=== PATIENT | female | born 1965 | race American Indian/Alaskan Native ===

== ENCOUNTER 2018-03-04 13:18 | Inpatient (IN) | payer MEDICAID, OTHER, SELFPAY ==
--- NOTE | 2018-03-04 14:16 | Emergency Department Report ---
ED Altered Mental Status HPI - General Chief Complaint: Dyspnea/Respdistress Stated Complaint: AMS Time Seen by Provider: 03/04/18 13:54 Source: patient, family Mode of arrival: Ambulatory Limitations: No Limitations - History of Present Illness Initial Comments: Pt is a 52 yo cauc. female who is brought to the ER today by her daughter. Her daughter states they went to bed last night and her mother was in her usual state of health. Usual for this pt is with residual from a CVA. She speaks slowly normally and is ambulatory. When the daughter woke up this am she found her mother on the phone with her rehabilitation caseworker. The case manger told the daughter that her mother was confused and she needed to go to ER. The rehabilitation caseworker stated that the patient gets like this when she has an inc ammonia level. So the patient came to ER. The pt has been in [place] since [place] visiting. Per the pt and family the pt does not have all of her meds due to a mix up with the mail order pharmacy. The rehabilitation caseworker confirmed this. Which meds the patient is not taking is unclear; but it seems like the majority have not been taken in about 2 weeks. The patients stated she does not have her stress dose steroids nor her lactulose. Pt and daughter are poor informants. The daughter can not tell me what her mothers medical history is. On arrival pt is confused, attempting to speak but can not recall what I am asking her. She moves all extremities but l side is weaker- this may be residual from previous CVA. 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 GLIMEPRIDE HYDROCORT BID 20 IN AM AND 10 AT NIGHT; PRN STRESS DOSE BUT PT DOES NOT KNOW THE DOSE KEPPRA PMH SEIZURES- grandmal in 02/02 which was pts last hospitalization BRAIN TUMOR CVA- SPEAKS SLOW WALKS WITH A CANE GERD DM HTN HPL NEUROPATHY PVD MIGRAINES CF PVD OBESITY ADRENAL DISEASE CKD CF PCP DR LEYVA [phone] neuro MD Dr zelaya [phone] Complaint: altered mental status, confusion -: Gradual, unknown (ACUTE/CHRONIC) Severity: moderate Context: change in medication (FROM OUT OF TOWN AND DOES NOT HAAVE ALL OF HER MEDS), diabetes, seizure disorder Associated Symptoms: other (POOR INFORMANT ) - Related Data Home Medications Medication Instructions Recorded Confirmed Last Taken Metoprolol [Lopressor TAB] 50 mg PO ONCE 09/06/15 09/12/15 Unknown metFORMIN [Glucophage] 500 mg PO BID 09/06/15 09/12/15 Unknown Citalopram [celeXA] 40 mg PO QDAY 09/12/15 09/12/15 Unknown Gabapentin [Neurontin] 300 mg PO Q8HR 09/12/15 09/12/15 Unknown Pantoprazole Sodium 40 mg PO ONCE 09/12/15 09/12/15 Unknown Allergies Allergy/AdvReac Type Severity Reaction Status Date / Time No Known Allergies Allergy Verified 03/04/18 13:45 ED Review of Systems ROS: Stated complaint: DIZZY/HEADACHE/WEAK Other details as noted in HPI Comment: Unobtainable due to pts medical conditions Constitutional: denies: chills, fever Eyes: denies: eye pain ENT: denies: ear pain Respiratory: denies: cough Cardiovascular: denies: palpitations Endocrine: denies: excessive sweating Gastrointestinal: denies: nausea Genitourinary: denies: urgency Musculoskeletal: denies: back pain Skin: denies: rash Neurological: as per HPI, weakness, confusion, other (pt and daughter are poor informants; the patient has no respiratory complaints on arrival). denies: headache, numbness, paresthesias, abnormal gait, vertigo Psychiatric: denies: anxiety, depression Hematological/Lymphatic: denies: easy bleeding ED Past Medical Hx - Past Medical History Previous Medical History?: Yes Hx Hypertension: Yes Hx CVA: Yes Hx Diabetes: Yes Hx GERD: Yes Hx Liver Disease: Yes Hx Renal Disease: Yes (CKD) Hx Headaches / Migraines: Yes Hx Seizures: Yes Hx Dementia: No Additional medical history: Brain Tumor, adrenal insufficiency, fibromyalgia - Surgical History Past Surgical History?: Yes - Family History Family history: no significant - Social History Smoking Status: Never Smoker Substance Use Type: None - Medications Home Medications: Home Medications Medication Instructions Recorded Confirmed Last Taken Type Metoprolol [Lopressor TAB] 50 mg PO ONCE 09/06/15 09/12/15 Unknown History metFORMIN [Glucophage] 500 mg PO BID 09/06/15 09/12/15 Unknown History Citalopram [celeXA] 40 mg PO QDAY 09/12/15 09/12/15 Unknown History Gabapentin [Neurontin] 300 mg PO Q8HR 09/12/15 09/12/15 Unknown History Pantoprazole Sodium 40 mg PO ONCE 09/12/15 09/12/15 Unknown History ED Physical Exam - General Limitations: No Limitations General appearance: other (awake- does not appear post ictic. no hx of recent sz; her last on ein 02/02) - Head Head exam: Present: atraumatic, normocephalic - Eye Eye exam: Present: PERRL, EOMI. Absent: scleral icterus, periorbital swelling Pupils: Present: other (3 reactive bilaterally) - ENT ENT exam: Present: normal exam, mucous membranes moist, TM's normal bilaterally - Neck Neck exam: Present: normal inspection, full ROM. Absent: tenderness, meningismu s, lymphadenopathy, thyromegaly - Respiratory Respiratory exam: Present: normal lung sounds bilaterally, other (no inc wob; sat mid 90's) - Cardiovascular Cardiovascular Exam: Present: regular rate, tachycardia, normal heart sounds - GI/Abdominal GI/Abdominal exam: Present: soft, normal bowel sounds, other (BM this AM per pt was normal). Absent: distended, tenderness - Rectal Rectal exam: Present: deferred - Extremities Exam Extremities exam: Present: normal capillary refill, other (mild left arm and left leg weakness noted ? residual from old CVA.) - Back Exam Back exam: Present: normal inspection. Absent: tenderness, CVA tenderness (R), CVA tenderness (L), rash noted - Neurological Exam Neurological exam: Present: altered, CN II-XII intact (no focal neuro def; no facial palsy; tongue midline). Absent: alert, oriented X3 (knows name only on admit), normal gait (normal for pt - cane) - Skin Skin exam: Present: warm, dry ED Course Vital Signs 03/04/18 03/04/18 13:39 15:34 Temperature 97.7 F Pulse Rate 105 H Respiratory 20 Rate Blood Pressure 145/83 147/81 O2 Sat by Pulse 95 Oximetry - Reevaluation(s) Reevaluation #1: 03/04/18 14:29 provider spoke with rehabilitation caseworker and validated this AM's events. Dr Baugh aware of patients presentation pt moved to main ED 03/04/18 17:12 On re-exam the patient recognized me- which she could not have done earlier. She states year is 2018. She told me her name and that her daughter went home. Dr Stewart aware of request to consult on patient. - Lab Data Result diagrams: 03/04/18 14:54 03/04/18 13:57 Lab Results 03/04/18 03/04/18 03/04/18 Range/Units 13:50 13:57 13:57 WBC (4.5-11.0) K/mm3 RBC (3.65-5.03) M/mm3 Hgb (10.1-14.3) gm/dl Hct (30.3-42.9) % MCV (79-97) fl MCH (28-32) pg MCHC (30-34) % RDW (13.2-15.2) % Plt Count (140-440) K/mm3 Lymph % (Auto) (13.4-35.0) % [place] % (Auto) (0.0-7.3) % Eos % (Auto) (0.0-4.3) % Baso % (Auto) (0.0-1.8) % Lymph # (1.2-5.4) K/mm3 [place] # (0.0-0.8) K/mm3 Eos # (0.0-0.4) K/mm3 Baso # (0.0-0.1) K/mm3 Total Counted Seg Neutrophils % (40.0-70.0) % Seg Neuts % (Manual) Band Neutrophils % Lymphocytes % (Manual) Reactive Lymphs % (Man) Monocytes % (Manual) Eosinophils % (Manual) Basophils % (Manual) Metamyelocytes % Myelocytes % Promyelocytes % Blast Cells % Nucleated RBC % Seg Neutrophils # (1.8-7.7) K/mm3 Seg Neutrophils # Man Band Neutrophils # Lymphocytes # (Manual) Abs React Lymphs (Man) Monocytes # (Manual) Eosinophils # (Manual) Basophils # (Manual) Metamyelocytes # Myelocytes # Promyelocytes # Blast Cells # WBC Morphology Hypersegmented Neuts Hyposegmented Neuts Hypogranular Neuts Hypersegmented Polys Smudge Cells Toxic Granulation Toxic Vacuolation Dohle Bodies Pelger-Huet Anomaly Kristie Rods Platelet Estimate Clumped Platelets Plt Clumps, EDTA Large Platelets Giant Platelets Platelet Satelliting Plt Morphology Comment RBC Morphology Dimorphic RBCs Polychromasia Hypochromasia Poikilocytosis Basophilic Stippling Anisocytosis Microcytosis Macrocytosis Spherocytes Pappenheimer Bodies Sickle Cells Target Cells Tear Drop Cells Ovalocytes Stomatocytes Helmet Cells [place] Bodies Glidden Rings [place] Cells Bite Cells Crenated Cell Elliptocytes Acanthocytes (Spur) Rouleaux Hemoglobin C Crystals Schistocytes Malaria parasites Lauri Bodies Hem Pathologist Commnt PT 14.4 (12.2-14.9) Sec. INR 1.08 (0.87-1.13) VBG pH (7.320-7.420) Sodium 138 (137-145) mmol/L Potassium 3.6 (3.6-5.0) mmol/L Chloride 100.9 (98-107) mmol/L Carbon Dioxide 22 (22-30) mmol/L Anion Gap 19 mmol/L BUN 11 (7-17) mg/dL Creatinine 0.5 L (0.7-1.2) mg/dL Estimated GFR > 60 ml/min BUN/Creatinine Ratio 22 % Glucose 258 H (65-100) mg/dL POC Glucose 273 H (70-105) Ketones Quantitative (Negative) Calcium 9.0 (8.4-10.2) mg/dL Total Bilirubin < 0.20 (0.1-1.2) mg/dL AST 12 (5-40) units/L ALT 22 (7-56) units/L Alkaline Phosphatase 112 (35-129) units/L Ammonia (25-60) umol/L Troponin T < 0.010 (0.00-0.029) ng/mL Total Protein 6.8 (6.3-8.2) g/dL Albumin 3.7 L (3.9-5) g/dL Albumin/Globulin Ratio 1.2 % Urine Color (Yellow) Urine Turbidity (Clear) Urine pH (5.0-7.0) Ur Specific [place] (1.003-1.030) Urine Protein (Negative) mg/dL Urine Glucose (UA) (Negative) mg/dL Urine Ketones (Negative) mg/dL Urine Blood (Negative) Urine Nitrite (Negative) Ur Reducing Substances Urine Bilirubin (Negative) Urine Ictotest Urine Urobilinogen (<2.0) mg/dL Ur Leukocyte Esterase (Negative) Urine WBC (Auto) (0.0-6.0) /HPF Urine RBC (Auto) (0.0-6.0) /HPF U Epithel Cells (Auto) (0-13.0) /HPF Urine Bacteria (Auto) (Negative) /HPF Urine Mucus /HPF Urine HCG, Qual (Negative) Urine Opiates Screen Urine Methadone Screen Ur Barbiturates Screen Ur Phencyclidine Scrn Ur Amphetamines Screen U Benzodiazepines Scrn Urine Cocaine Screen U Marijuana (THC) Screen Drugs of Abuse Note 03/04/18 03/04/18 03/04/18 Range/Units 13:57 14:54 15:18 WBC 8.8 (4.5-11.0) K/mm3 RBC 4.74 (3.65-5.03) M/mm3 Hgb 11.7 (10.1-14.3) gm/dl Hct 35.7 (30.3-42.9) % MCV 75 L (79-97) fl MCH 25 L (28-32) pg MCHC 33 (30-34) % RDW 20.1 H (13.2-15.2) % Plt Count 231 (140-440) K/mm3 Lymph % (Auto) 33.6 (13.4-35.0) % [place] % (Auto) 6.5 (0.0-7.3) % Eos % (Auto) 1.1 (0.0-4.3) % Baso % (Auto) 0.4 (0.0-1.8) % Lymph # 2.9 (1.2-5.4) K/mm3 [place] # 0.6 (0.0-0.8) K/mm3 Eos # 0.1 (0.0-0.4) K/mm3 Baso # 0.0 (0.0-0.1) K/mm3 Total Counted Cancelled Seg Neutrophils % 58.4 (40.0-70.0) % Seg Neuts % (Manual) Cancelled Band Neutrophils % Cancelled Lymphocytes % (Manual) Cancelled Reactive Lymphs % (Man) Cancelled Monocytes % (Manual) Cancelled Eosinophils % (Manual) Cancelled Basophils % (Manual) Cancelled Metamyelocytes % Cancelled Myelocytes % Cancelled Promyelocytes % Cancelled Blast Cells % Cancelled Nucleated RBC % Cancelled Seg Neutrophils # 5.0 (1.8-7.7) K/mm3 Seg Neutrophils # Man Cancelled Band Neutrophils # Cancelled Lymphocytes # (Manual) Cancelled Abs React Lymphs (Man) Cancelled Monocytes # (Manual) Cancelled Eosinophils # (Manual) Cancelled Basophils # (Manual) Cancelled Metamyelocytes # Cancelled Myelocytes # Cancelled Promyelocytes # Cancelled Blast Cells # Cancelled WBC Morphology Cancelled Hypersegmented Neuts Cancelled Hyposegmented Neuts Cancelled Hypogranular Neuts Cancelled Hypersegmented Polys Cancelled Smudge Cells Cancelled Toxic Granulation Cancelled Toxic Vacuolation Cancelled Dohle Bodies Cancelled Pelger-Huet Anomaly Cancelled Kristie Rods Cancelled Platelet Estimate Cancelled Clumped Platelets Cancelled Plt Clumps, EDTA Cancelled Large Platelets Cancelled Giant Platelets Cancelled Platelet Satelliting Cancelled Plt Morphology Comment Cancelled RBC Morphology Cancelled Dimorphic RBCs Cancelled Polychromasia Cancelled Hypochromasia Cancelled Poikilocytosis Cancelled Basophilic Stippling Cancelled Anisocytosis Cancelled Microcytosis Cancelled Macrocytosis Cancelled Spherocytes Cancelled Pappenheimer Bodies Cancelled Sickle Cells Cancelled Target Cells Cancelled Tear Drop Cells Cancelled Ovalocytes Cancelled Stomatocytes Cancelled Helmet Cells Cancelled [place] Bodies Cancelled [place] Cancelled [place] Cells Cancelled Bite Cells Cancelled Crenated Cell Cancelled Elliptocytes Cancelled Acanthocytes (Spur) Cancelled Rouleaux Cancelled Hemoglobin C Crystals Cancelled Schistocytes Cancelled Malaria parasites Cancelled Lauri Bodies Cancelled Hem Pathologist Commnt Cancelled PT (12.2-14.9) Sec. INR (0.87-1.13) VBG pH (7.320-7.420) Sodium (137-145) mmol/L Potassium (3.6-5.0) mmol/L Chloride (98-107) mmol/L Carbon Dioxide (22-30) mmol/L Anion Gap mmol/L BUN (7-17) mg/dL Creatinine (0.7-1.2) mg/dL Estimated GFR ml/min BUN/Creatinine Ratio % Glucose (65-100) mg/dL POC Glucose (70-105) Ketones Quantitative Negative (Negative) Calcium (8.4-10.2) mg/dL Total Bilirubin (0.1-1.2) mg/dL AST (5-40) units/L ALT (7-56) units/L Alkaline Phosphatase (35-129) units/L Ammonia 61.0 H (25-60) umol/L Troponin T (0.00-0.029) ng/mL Total Protein (6.3-8.2) g/dL Albumin (3.9-5) g/dL Albumin/Globulin Ratio % Urine Color (Yellow) Urine Turbidity (Clear) Urine pH (5.0-7.0) Ur Specific [place] (1.003-1.030) Urine Protein (Negative) mg/dL Urine Glucose (UA) (Negative) mg/dL Urine Ketones (Negative) mg/dL Urine Blood (Negative) Urine Nitrite (Negative) Ur Reducing Substances Urine Bilirubin (Negative) Urine Ictotest Urine Urobilinogen (<2.0) mg/dL Ur Leukocyte Esterase (Negative) Urine WBC (Auto) (0.0-6.0) /HPF Urine RBC (Auto) (0.0-6.0) /HPF U Epithel Cells (Auto) (0-13.0) /HPF Urine Bacteria (Auto) (Negative) /HPF Urine Mucus /HPF Urine HCG, Qual (Negative) Urine Opiates Screen Urine Methadone Screen Ur Barbiturates Screen Ur Phencyclidine Scrn Ur Amphetamines Screen U Benzodiazepines Scrn Urine Cocaine Screen U Marijuana (THC) Screen Drugs of Abuse Note 03/04/18 03/04/18 03/04/18 Range/Units 15:18 15:42 15:42 WBC (4.5-11.0) K/mm3 RBC (3.65-5.03) M/mm3 Hgb (10.1-14.3) gm/dl Hct (30.3-42.9) % MCV (79-97) fl MCH (28-32) pg MCHC (30-34) % RDW (13.2-15.2) % Plt Count (140-440) K/mm3 Lymph % (Auto) (13.4-35.0) % [place] % (Auto) (0.0-7.3) % Eos % (Auto) (0.0-4.3) % Baso % (Auto) (0.0-1.8) % Lymph # (1.2-5.4) K/mm3 [place] # (0.0-0.8) K/mm3 Eos # (0.0-0.4) K/mm3 Baso # (0.0-0.1) K/mm3 Total Counted Seg Neutrophils % (40.0-70.0) % Seg Neuts % (Manual) Band Neutrophils % Lymphocytes % (Manual) Reactive Lymphs % (Man) Monocytes % (Manual) Eosinophils % (Manual) Basophils % (Manual) Metamyelocytes % Myelocytes % Promyelocytes % Blast Cells % Nucleated RBC % Seg Neutrophils # (1.8-7.7) K/mm3 Seg Neutrophils # Man Band Neutrophils # Lymphocytes # (Manual) Abs React Lymphs (Man) Monocytes # (Manual) Eosinophils # (Manual) Basophils # (Manual) Metamyelocytes # Myelocytes # Promyelocytes # Blast Cells # WBC Morphology Hypersegmented Neuts Hyposegmented Neuts Hypogranular Neuts Hypersegmented Polys Smudge Cells Toxic Granulation Toxic Vacuolation Dohle Bodies Pelger-Huet Anomaly Kristie Rods Platelet Estimate Clumped Platelets Plt Clumps, EDTA Large Platelets Giant Platelets Platelet Satelliting Plt Morphology Comment RBC Morphology Dimorphic RBCs Polychromasia Hypochromasia Poikilocytosis Basophilic Stippling Anisocytosis Microcytosis Macrocytosis Spherocytes Pappenheimer Bodies Sickle Cells Target Cells Tear Drop Cells Ovalocytes Stomatocytes Helmet Cells [place] Bodies [place]idden Rings [place] Cells Bite Cells Crenated Cell Elliptocytes Acanthocytes (Spur) Rouleaux Hemoglobin C Crystals Schistocytes Malaria parasites Lauri Bodies Hem Pathologist Commnt PT (12.2-14.9) Sec. INR (0.87-1.13) VBG pH 7.361 (7.320-7.420) Sodium (137-145) mmol/L Potassium (3.6-5.0) mmol/L Chloride (98-107) mmol/L Carbon Dioxide (22-30) mmol/L Anion Gap mmol/L BUN (7-17) mg/dL Creatinine (0.7-1.2) mg/dL Estimated GFR ml/min BUN/Creatinine Ratio % Glucose (65-100) mg/dL POC Glucose (70-105) Ketones Quantitative (Negative) Calcium (8.4-10.2) mg/dL Total Bilirubin (0.1-1.2) mg/dL AST (5-40) units/L ALT (7-56) units/L Alkaline Phosphatase (35-129) units/L Ammonia (25-60) umol/L Troponin T (0.00-0.029) ng/mL Total Protein (6.3-8.2) g/dL Albumin (3.9-5) g/dL Albumin/Globulin Ratio % Urine Color Yellow (Yellow) Urine Turbidity Clear (Clear) Urine pH 5.0 (5.0-7.0) Ur Specific [place] 1.023 (1.003-1.030) Urine Protein <15 mg/dl (Negative) mg/dL Urine Glucose (UA) >=500 (Negative) mg/dL Urine Ketones Neg (Negative) mg/dL Urine Blood Neg (Negative) Urine Nitrite Neg (Negative) Ur Reducing Substances Not Reportable Urine Bilirubin Neg (Negative) Urine Ictotest Not Reportable Urine Urobilinogen 2.0 (<2.0) mg/dL Ur Leukocyte Esterase Neg (Negative) Urine WBC (Auto) 1.0 (0.0-6.0) /HPF Urine RBC (Auto) 1.0 (0.0-6.0) /HPF U Epithel Cells (Auto) 1.0 (0-13.0) /HPF Urine Bacteria (Auto) 1+ (Negative) /HPF Urine Mucus Few /HPF Urine HCG, Qual Negative (Negative) Urine Opiates Screen Presumptive negative Urine Methadone Screen Presumptive negative Ur Barbiturates Screen Presumptive negative Ur Phencyclidine Scrn Presumptive negative Ur Amphetamines Screen Presumptive negative U Benzodiazepines Scrn Presumptive negative Urine Cocaine Screen Presumptive negative U Marijuana (THC) Screen Presumptive negative Drugs of Abuse Note Disclamer - EKG Data -: EKG Interpreted by Me Rate: tachycardia - Radiology Data Radiology results: report reviewed, image reviewed unchanged brain tumor/calcification - Medical Decision Making blood sugar normal on admit labs noted ammonia 61- lactulose ordered trop neg urine noted UDS negative chest xray without consolidation Ct head noted- no change pending: cortisol ACTH blood cultures Pt was given NS 1L for hydration decadron 4 mg IV [address] Stewart for evaluation/ dispo per Dr Stewart Labs 03/04/18 03/04/18 03/04/18 13:50 13:57 13:57 WBC RBC Hgb Hct MCV MCH MCHC RDW Plt Count Lymph % (Auto) [place] % (Auto) Eos % (Auto) Baso % (Auto) Lymph # [place] # Eos # Baso # Total Counted Seg Neutrophils % Seg Neuts % (Manual) Band Neutrophils % Lymphocytes % (Manual) Reactive Lymphs % (Man) Monocytes % (Manual) Eosinophils % (Manual) Basophils % (Manual) Metamyelocytes % Myelocytes % Promyelocytes % Blast Cells % Nucleated RBC % Seg Neutrophils # Seg Neutrophils # Man Band Neutrophils # Lymphocytes # (Manual) Abs React Lymphs (Man) Monocytes # (Manual) Eosinophils # (Manual) Basophils # (Manual) Metamyelocytes # Myelocytes # Promyelocytes # Blast Cells # WBC Morphology Hypersegmented Neuts Hyposegmented Neuts Hypogranular Neuts Hypersegmented Polys Smudge Cells Toxic Granulation Toxic Vacuolation Dohle Bodies Pelger-Huet Anomaly Kristie Rods Platelet Estimate Clumped Platelets Plt Clumps, EDTA Large Platelets Giant Platelets Platelet Satelliting Plt Morphology Comment RBC Morphology Dimorphic RBCs Polychromasia Hypochromasia Poikilocytosis Basophilic Stippling Anisocytosis Microcytosis Macrocytosis Spherocytes Pappenheimer Bodies Sickle Cells Target Cells Tear Drop Cells Ovalocytes Stomatocytes Helmet Cells [place] Bodies Glidden Rings [place] Cells Bite Cells Crenated Cell Elliptocytes Acanthocytes (Spur) Rouleaux Hemoglobin C Crystals Schistocytes Malaria parasites Lauri Bodies Hem Pathologist Commnt PT 14.4 INR 1.08 VBG pH Sodium 138 Potassium 3.6 Chloride 100.9 Carbon Dioxide 22 Anion Gap 19 BUN 11 Creatinine 0.5 L Estimated GFR > 60 BUN/Creatinine Ratio 22 Glucose 258 H POC Glucose 273 H Ketones Quantitative Calcium 9.0 Total Bilirubin < 0.20 AST 12 ALT 22 Alkaline Phosphatase 112 Ammonia Troponin T < 0.010 Total Protein 6.8 Albumin 3.7 L Albumin/Globulin Ratio 1.2 Urine Color Urine Turbidity Urine pH Ur Specific [place] Urine Protein Urine Glucose (UA) Urine Ketones Urine Blood Urine Nitrite Ur Reducing Substances Urine Bilirubin Urine Ictotest Urine Urobilinogen Ur Leukocyte Esterase Urine WBC (Auto) Urine RBC (Auto) U Epithel Cells (Auto) Urine Bacteria (Auto) Urine Mucus Urine HCG, Qual Urine Opiates Screen Urine Methadone Screen Ur Barbiturates Screen Ur Phencyclidine Scrn Ur Amphetamines Screen U Benzodiazepines Scrn Urine Cocaine Screen U Marijuana (THC) Screen Drugs of Abuse Note 03/04/18 03/04/18 03/04/18 13:57 14:54 15:18 WBC 8.8 RBC 4.74 Hgb 11.7 Hct 35.7 MCV 75 L MCH 25 L MCHC 33 RDW 20.1 H Plt Count 231 Lymph % (Auto) 33.6 [place] % (Auto) 6.5 Eos % (Auto) 1.1 Baso % (Auto) 0.4 Lymph # 2.9 [place] # 0.6 Eos # 0.1 Baso # 0.0 Total Counted Cancelled Seg Neutrophils % 58.4 Seg Neuts % (Manual) Cancelled Band Neutrophils % Cancelled Lymphocytes % (Manual) Cancelled Reactive Lymphs % (Man) Cancelled Monocytes % (Manual) Cancelled Eosinophils % (Manual) Cancelled Basophils % (Manual) Cancelled Metamyelocytes % Cancelled Myelocytes % Cancelled Promyelocytes % Cancelled Blast Cells % Cancelled Nucleated RBC % Cancelled Seg Neutrophils # 5.0 Seg Neutrophils # Man Cancelled Band Neutrophils # Cancelled Lymphocytes # (Manual) Cancelled Abs React Lymphs (Man) Cancelled Monocytes # (Manual) Cancelled Eosinophils # (Manual) Cancelled Basophils # (Manual) Cancelled Metamyelocytes # Cancelled Myelocytes # Cancelled Promyelocytes # Cancelled Blast Cells # Cancelled WBC Morphology Cancelled Hypersegmented Neuts Cancelled Hyposegmented Neuts Cancelled Hypogranular Neuts Cancelled Hypersegmented Polys Cancelled Smudge Cells Cancelled Toxic Granulation Cancelled Toxic Vacuolation Cancelled Dohle Bodies Cancelled Pelger-Huet Anomaly Cancelled Kristie Rods Cancelled Platelet Estimate Cancelled Clumped Platelets Cancelled Plt Clumps, EDTA Cancelled Large Platelets Cancelled Giant Platelets Cancelled Platelet Satelliting Cancelled Plt Morphology Comment Cancelled RBC Morphology Cancelled Dimorphic RBCs Cancelled Polychromasia Cancelled Hypochromasia Cancelled Poikilocytosis Cancelled Basophilic Stippling Cancelled Anisocytosis Cancelled Microcytosis Cancelled Macrocytosis Cancelled Spherocytes Cancelled Pappenheimer Bodies Cancelled Sickle Cells Cancelled Target Cells Cancelled Tear Drop Cells Cancelled Ovalocytes Cancelled Stomatocytes Cancelled Helmet Cells Cancelled [place] Bodies Cancelled [place] Cancelled [place] Cells Cancelled Bite Cells Cancelled Crenated Cell Cancelled Elliptocytes Cancelled Acanthocytes (Spur) Cancelled Rouleaux Cancelled Hemoglobin C Crystals Cancelled Schistocytes Cancelled Malaria parasites Cancelled Lauri Bodies Cancelled Hem Pathologist Commnt Cancelled PT INR VBG pH Sodium Potassium Chloride Carbon Dioxide Anion Gap BUN Creatinine Estimated GFR BUN/Creatinine Ratio Glucose POC Glucose Ketones Quantitative Negative Calcium Total Bilirubin AST ALT Alkaline Phosphatase Ammonia 61.0 H Troponin T Total Protein Albumin Albumin/Globulin Ratio Urine Color Urine Turbidity Urine pH Ur Specific [place] Urine Protein Urine Glucose (UA) Urine Ketones Urine Blood Urine Nitrite Ur Reducing Substances Urine Bilirubin Urine Ictotest Urine Urobilinogen Ur Leukocyte Esterase Urine WBC (Auto) Urine RBC (Auto) U Epithel Cells (Auto) Urine Bacteria (Auto) Urine Mucus Urine HCG, Qual Urine Opiates Screen Urine Methadone Screen Ur Barbiturates Screen Ur Phencyclidine Scrn Ur Amphetamines Screen U Benzodiazepines Scrn Urine Cocaine Screen U Marijuana (THC) Screen Drugs of Abuse Note 03/04/18 03/04/18 03/04/18 15:18 15:42 15:42 WBC RBC Hgb Hct MCV MCH MCHC RDW Plt Count Lymph % (Auto) [place] % (Auto) Eos % (Auto) Baso % (Auto) Lymph # [place] # Eos # Baso # Total Counted Seg Neutrophils % Seg Neuts % (Manual) Band Neutrophils % Lymphocytes % (Manual) Reactive Lymphs % (Man) Monocytes % (Manual) Eosinophils % (Manual) Basophils % (Manual) Metamyelocytes % Myelocytes % Promyelocytes % Blast Cells % Nucleated RBC % Seg Neutrophils # Seg Neutrophils # Man Band Neutrophils # Lymphocytes # (Manual) Abs React Lymphs (Man) Monocytes # (Manual) Eosinophils # (Manual) Basophils # (Manual) Metamyelocytes # Myelocytes # Promyelocytes # Blast Cells # WBC Morphology Hypersegmented Neuts Hyposegmented Neuts Hypogranular Neuts Hypersegmented Polys Smudge Cells Toxic Granulation Toxic Vacuolation Dohle Bodies Pelger-Huet Anomaly Kristie Rods Platelet Estimate Clumped Platelets Plt Clumps, EDTA Large Platelets Giant Platelets Platelet Satelliting Plt Morphology Comment RBC Morphology Dimorphic RBCs Polychromasia Hypochromasia Poikilocytosis Basophilic Stippling Anisocytosis Microcytosis Macrocytosis Spherocytes Pappenheimer Bodies Sickle Cells Target Cells Tear Drop Cells Ovalocytes Stomatocytes Helmet Cells [place] Bodies Glidden Rings [place] Cells Bite Cells Crenated Cell Elliptocytes Acanthocytes (Spur) Rouleaux Hemoglobin C Crystals Schistocytes Malaria parasites Lauri Bodies Hem Pathologist Commnt PT INR VBG pH 7.361 Sodium Potassium Chloride Carbon Dioxide Anion Gap BUN Creatinine Estimated GFR BUN/Creatinine Ratio Glucose POC Glucose Ketones Quantitative Calcium Total Bilirubin AST ALT Alkaline Phosphatase Ammonia Troponin T Total Protein Albumin Albumin/Globulin Ratio Urine Color Yellow Urine Turbidity Clear Urine pH 5.0 Ur Specific [place] 1.023 Urine Protein <15 mg/dl Urine Glucose (UA) >=500 Urine Ketones Neg Urine Blood Neg Urine Nitrite Neg Ur Reducing Substances Not Reportable Urine Bilirubin Neg Urine Ictotest Not Reportable Urine Urobilinogen 2.0 Ur Leukocyte Esterase Neg Urine WBC (Auto) 1.0 Urine RBC (Auto) 1.0 U Epithel Cells (Auto) 1.0 Urine Bacteria (Auto) 1+ Urine Mucus Few Urine HCG, Qual Negative Urine Opiates Screen Presumptive negative Urine Methadone Screen Presumptive negative Ur Barbiturates Screen Presumptive negative Ur Phencyclidine Scrn Presumptive negative Ur Amphetamines Screen Presumptive negative U Benzodiazepines Scrn Presumptive negative Urine Cocaine Screen Presumptive negative U Marijuana (THC) Screen Presumptive negative Drugs of Abuse Note Disclamer - Differential Diagnosis AMS due to CVA/encephalopathy- ammonia/urea/drugs; adrenal crisis - Core Measures Measure Exclusions: not indicated - NEXUS Criteria Midline spinal tenderness present: No Altered level of consciousness: Yes Intoxication present: No Distracting injury present: No NEXUS results: C-Spine cannot be cleared clinically by these results. Imaging is required. Critical Care Time: Yes Critical care time in (mins) excluding proc time.: 30 Critical care attestation.: If time is entered above; I have spent that time in minutes in the direct care of this critically ill patient, excluding procedure time. Critical Care Time: 30 min ED Disposition Clinical Impression: Altered mental status Disposition: [id number] OP ADMIT IP TO THIS HOSP Is pt being admited?: Yes Does the pt Need Aspirin: No Condition: Stable Time of Disposition: 17:07
[2018-03-04] MEDS ORDERED: NACL 0.9% 1000 ML 1,000 ML IV ONE (14:20)
[2018-03-04] MEDS ORDERED: DECADRON IV ONE (14:21)
[2018-03-04 14:48] LABS: INR 1.08 (0.87-1.13)
[2018-03-04 14:50] LABS: Alanine Aminotransferase 22 units/L (7-56); Albumin 3.7 g/dL (3.9-5); BUN/Creatinine Ratio 22; Blood Urea Nitrogen 11 mg/dL (7-17); Hemolysis Index 12
[2018-03-04 15:00] LABS: Hematocrit 35.7 % (30.3-42.9); Hemoglobin 11.7 gm/dl (10.1-14.3); Mean Corpuscular HGB Conc 33 % (30-34); Mean Corpuscular Volume 75 fl (79-97); Platelet Count 231 K/mm3 (140-440); Red Blood Count 4.74 M/mm3 (3.65-5.03)
[2018-03-04 15:02] LABS: Red Cell Distribution Width 20.1 % (13.2-15.2)
[2018-03-04 15:24] LABS: Basophils % (Auto) 0.4 % (0.0-1.8); Eosinophils % (Auto) 1.1 % (0.0-4.3); Lymphocytes # (Auto) 2.9 K/mm3 (1.2-5.4); Lymphocytes % (Auto) 33.6 % (13.4-35.0); Monocytes % (Auto) 6.5 % (0.0-7.3)
[2018-03-04 15:25] LABS: Eosinophils # (Auto) 0.1 K/mm3 (0.0-0.4); Monocytes # (Auto) 0.6 K/mm3 (0.0-0.8)
[2018-03-04] MEDS ORDERED: CEPHULAC PO ONE (15:46)
[2018-03-04 16:15] LABS: HCG Qualitative,Urine Negative (Negative)
[2018-03-04 16:17] LABS: Bacteria,Urine 1+ /HPF (Negative); Bilirubin,Urine NEG (Negative); Blood,Urine NEG (Negative); Color,Urine Yellow (Yellow); Mucus,Urine FEW /HPF; Protein,Urine <15 mg/dL mg/dL (Negative)
--- NOTE | 2018-03-04 16:23 | XRay Report ---
FINAL REPORT EXAM: XR CHEST ROUTINE 2V HISTORY: COUGH COMPARISON: None. TECHNIQUE: Frontal and lateral views of the chest. FINDINGS: The cardiomediastinal silhouette is normal in appearance. The lungs are clear without focal consolidation. There is no pleural effusion or pneumothorax. There is no acute soft tissue or osseous abnormality. IMPRESSION: No acute cardiopulmonary disease.
[2018-03-04 16:58] LABS: Amphetamine Screen,Urine PRESUMPTIVE NEGATIVE; Benzodiazepines Screen,Urine PRESUMPTIVE NEGATIVE; Cannabinoid Screen,Urine PRESUMPTIVE NEGATIVE; Cocaine Screen,Urine PRESUMPTIVE NEGATIVE; Methadone Screen,Urine PRESUMPTIVE NEGATIVE; Opiate Screen,Urine PRESUMPTIVE NEGATIVE
--- NOTE | 2018-03-04 16:58 | Cat Scan Report ---
FINAL REPORT EXAM: CT HEAD/BRAIN WO CON HISTORY: ams- known tumor- details unknown COMPARISON: CT of the head performed on 09/12/2015 TECHNIQUE: Multiple contiguous axial images were obtained through the head without administration of IV contrast. FINDINGS: Again seen is a calcified extra-axial mass in the right frontal region measuring approximately 2.2 x 1.9 centimeters, similar in appearance to the previous study. There is no mass effect or midline shif t. There is no acute territorial infarct. There is no parenchymal hemorrhage or extra-axial fluid col lection. The ventricles are midline and are not enlarged. The subarachnoid spaces and basilar cistern s are clear. There is no skull fracture. The paranasal sinuses and mastoid air cells are clear. The b ilateral orbits are intact. IMPRESSION: Unchanged calcified extra-axial mass in the right frontal region, which may represent a meningioma. No acute intracranial abnormality.
[2018-03-04] MEDS ORDERED: FIORICET PO ONE (18:11)
[2018-03-04] MEDS ORDERED: CORTEF PO SCH ×2 (20:00→22:00)
--- NOTE | 2018-03-04 20:59 | History and Physical Report ---
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 Patient was in her usual state of health until last night. No fever or chills. Patient is from [place] but is staying with her daughter since in [place] and not taking her medications because her mail order pharmacy did not send them to the proper address. Patient is not taking her lactulose and hydrocortisone. No fever or chills. No shortness of breath. No chest pain. - Past Medical History Previous Medical History?: Yes Hx Hypertension: Yes Hx CVA: Yes Hx Diabetes: Yes Hx GERD: Yes Hx Liver Disease: Yes Hx Renal Disease: Yes (CKD) Hx Headaches / Migraines: Yes Hx Seizures: Yes Additional medical history: Brain Tumor, adrenal insufficiency, fibromyalgia Surgical History Past Surgical History?: Yes Family History Family history: no significant Social History Smoking Status: Never Smoker Substance Use Type: None Medications Home Medications: Home Medications Medication Instructions Recorded Confirmed Last Taken Type Metoprolol [Lopressor TAB] 50 mg PO ONCE 09/06/15 09/12/15 Unknown History metFORMIN [Glucophage] 500 mg PO BID 09/06/15 09/12/15 Unknown History Citalopram [celeXA] 40 mg PO QDAY 09/12/15 09/12/15 Unknown History Gabapentin [Neurontin] 300 mg PO Q8HR 09/12/15 09/12/15 Unknown History Pantoprazole Sodium 40 mg PO ONCE 09/12/15 09/12/15 Unknown History Review of Systems ROS: Stated complaint: DIZZY/HEADACHE/WEAK Other details as noted in HPI Comment: Unobtainable due to pts medical conditions Constitutional: denies: chills, fever Eyes: denies: eye pain ENT: denies: ear pain Respiratory: denies: cough Cardiovascular: denies: palpitations Endocrine: denies: excessive sweating Gastrointestinal: denies: nausea Genitourinary: denies: urgency Musculoskeletal: denies: back pain Skin: denies: rash Neurological: as per HPI, weakness, confusion, other (pt and daughter are poor informants; the patient has no respiratory complaints on arrival). denies: headache, numbness, paresthesias, abnormal gait, vertigo Psychiatric: denies: anxiety, depression Hematological/Lymphatic: denies: easy bleeding Medications and Allergies Allergies Allergy/AdvReac Type Severity Reaction Status Date / Time No Known Allergies Allergy Verified 03/04/18 13:45 Home Medications Medication Instructions Recorded Confirmed Last Taken Type Metoprolol [Lopressor TAB] 50 mg PO ONCE 09/06/15 09/12/15 Unknown History metFORMIN [Glucophage] 500 mg PO BID 09/06/15 09/12/15 Unknown History Citalopram [celeXA] 40 mg PO QDAY 09/12/15 09/12/15 Unknown History Gabapentin [Neurontin] 300 mg PO Q8HR 09/12/15 09/12/15 Unknown History Pantoprazole Sodium 40 mg PO ONCE 09/12/15 09/12/15 Unknown History Active Meds: Active Medications Sodium Chloride (Nacl 0.9% 1000 Ml) 1,000 mls @ 125 mls/hr IV BOLUS ONE Stop: 03/04/18 22:19 Last Admin: 03/04/18 16:06 Dose: 125 mls/hr Documented by: Exam - Constitutional Vitals: Temp Pulse Resp BP Pulse Ox 97.7 F 97 H 19 150/86 99 03/04/18 19:25 03/04/18 19:25 03/04/18 19:25 03/04/18 19:25 03/04/18 19:25 General appearance: Present: no acute distress, well-nourished - EENT Eyes: Present: PERRL ENT: hearing intact, clear oral mucosa - Neck Neck: Present: supple, normal ROM - Respiratory Respiratory effort: normal Respiratory: bilateral: CTA - Cardiovascular Heart rate: 90 Rhythm: regular (6) Heart Sounds: Present: S1 & S2. Absent: rub, click - Extremities Extremities: no ischemia, pulses intact, pulses symmetrical, No edema Peripheral Pulses: within normal limits - Abdominal General gastrointestinal: Present: soft, non-tender, non-distended, normal bowel sounds Female genitourinary: Present: normal - Integumentary Integumentary: Present: clear, warm, dry - Musculoskeletal Musculoskeletal: gait normal, strength equal bilaterally - Psychiatric Psychiatric: appropriate mood/affect, intact judgment & insight - Neurologic Neurologic: CNII-XII intact, moves all extremities - Allied Health Allied health notes reviewed: nursing, case management Results - Labs CBC & Chem 7: 03/04/18 14:54 03/04/18 13:57 Labs: Laboratory Last Values WBC 8.8 K/mm3 (4.5-11.0) 03/04/18 14:54 RBC 4.74 M/mm3 (3.65-5.03) 03/04/18 14:54 Hgb 11.7 gm/dl (10.1-14.3) 03/04/18 14:54 Hct 35.7 % (30.3-42.9) 03/04/18 14:54 MCV 75 fl (79-97) L 03/04/18 14:54 MCH 25 pg (28-32) L 03/04/18 14:54 MCHC 33 % (30-34) 03/04/18 14:54 RDW 20.1 % (13.2-15.2) H 03/04/18 14:54 Plt Count 231 K/mm3 (140-440) 03/04/18 14:54 Lymph % (Auto) 33.6 % (13.4-35.0) 03/04/18 14:54 [facility] % (Auto) 6.5 % (0.0-7.3) 03/04/18 14:54 Eos % (Auto) 1.1 % (0.0-4.3) 03/04/18 14:54 Baso % (Auto) 0.4 % (0.0-1.8) 03/04/18 14:54 Lymph # 2.9 K/mm3 (1.2-5.4) 03/04/18 14:54 [facility] # 0.6 K/mm3 (0.0-0.8) 03/04/18 14:54 Eos # 0.1 K/mm3 (0.0-0.4) 03/04/18 14:54 Baso # 0.0 K/mm3 (0.0-0.1) 03/04/18 14:54 Total Counted Cancelled 03/04/18 14:54 Seg Neutrophils % 58.4 % (40.0-70.0) 03/04/18 14:54 Seg Neuts % (Manual) Cancelled 03/04/18 14:54 Band Neutrophils % Cancelled 03/04/18 14:54 Lymphocytes % (Manual) Cancelled 03/04/18 14:54 Reactive Lymphs % (Man) Cancelled 03/04/18 14:54 Monocytes % (Manual) Cancelled 03/04/18 14:54 Eosinophils % (Manual) Cancelled 03/04/18 14:54 Basophils % (Manual) Cancelled 03/04/18 14:54 Metamyelocytes % Cancelled 03/04/18 14:54 Myelocytes % Cancelled 03/04/18 14:54 Promyelocytes % Cancelled 03/04/18 14:54 Blast Cells % Cancelled 03/04/18 14:54 Nucleated RBC % Cancelled 03/04/18 14:54 Seg Neutrophils # 5.0 K/mm3 (1.8-7.7) 03/04/18 14:54 Seg Neutrophils # Man Cancelled 03/04/18 14:54 Band Neutrophils # Cancelled 03/04/18 14:54 Lymphocytes # (Manual) Cancelled 03/04/18 14:54 Abs React Lymphs (Man) Cancelled 03/04/18 14:54 Monocytes # (Manual) Cancelled 03/04/18 14:54 Eosinophils # (Manual) Cancelled 03/04/18 14:54 Basophils # (Manual) Cancelled 03/04/18 14:54 Metamyelocytes # Cancelled 03/04/18 14:54 Myelocytes # Cancelled 03/04/18 14:54 Promyelocytes # Cancelled 03/04/18 14:54 Blast Cells # Cancelled 03/04/18 14:54 WBC Morphology Cancelled 03/04/18 14:54 Hypersegmented Neuts Cancelled 03/04/18 14:54 Hyposegmented Neuts Cancelled 03/04/18 14:54 Hypogranular Neuts Cancelled 03/04/18 14:54 Hypersegmented Polys Cancelled 03/04/18 14:54 Smudge Cells Cancelled 03/04/18 14:54 Toxic Granulation Cancelled 03/04/18 14:54 Toxic Vacuolation Cancelled 03/04/18 14:54 Dohle Bodies Cancelled 03/04/18 14:54 Pelger-Huet Anomaly Cancelled 03/04/18 14:54 Kristie Rods Cancelled 03/04/18 14:54 Platelet Estimate Cancelled 03/04/18 14:54 Clumped Platelets Cancelled 03/04/18 14:54 Plt Clumps, EDTA Cancelled 03/04/18 14:54 Large Platelets Cancelled 03/04/18 14:54 Giant Platelets Cancelled 03/04/18 14:54 Platelet Satelliting Cancelled 03/04/18 14:54 Plt Morphology Comment Cancelled 03/04/18 14:54 RBC Morphology Cancelled 03/04/18 14:54 Dimorphic RBCs Cancelled 03/04/18 14:54 Polychromasia Cancelled 03/04/18 14:54 Hypochromasia Cancelled 03/04/18 14:54 Poikilocytosis Cancelled 03/04/18 14:54 Basophilic Stippling Cancelled 03/04/18 14:54 Anisocytosis Cancelled 03/04/18 14:54 Microcytosis Cancelled 03/04/18 14:54 Macrocytosis Cancelled 03/04/18 14:54 Spherocytes Cancelled 03/04/18 14:54 Pappenheimer Bodies Cancelled 03/04/18 14:54 Sickle Cells Cancelled 03/04/18 14:54 Target Cells Cancelled 03/04/18 14:54 Tear Drop Cells Cancelled 03/04/18 14:54 Ovalocytes Cancelled 03/04/18 14:54 Stomatocytes Cancelled 03/04/18 14:54 Helmet Cells Cancelled 03/04/18 14:54 [place] Bodies Cancelled 03/04/18 14:54 [place] Rings Cancelled 03/04/18 14:54 [place] Cells Cancelled 03/04/18 14:54 Bite Cells Cancelled 03/04/18 14:54 Crenated Cell Cancelled 03/04/18 14:54 Elliptocytes Cancelled 03/04/18 14:54 Acanthocytes (Spur) Cancelled 03/04/18 14:54 Rouleaux Cancelled 03/04/18 14:54 Hemoglobin C Crystals Cancelled 03/04/18 14:54 Schistocytes Cancelled 03/04/18 14:54 Malaria parasites Cancelled 03/04/18 14:54 Lauri Bodies Cancelled 03/04/18 14:54 Hem Pathologist Commnt Cancelled 03/04/18 14:54 PT 14.4 Sec. (12.2-14.9) 03/04/18 13:57 INR 1.08 (0.87-1.13) 03/04/18 13:57 VBG pH 7.361 (7.320-7.420) 03/04/18 15:18 Sodium 138 mmol/L (137-145) 03/04/18 13:57 Potassium 3.6 mmol/L (3.6-5.0) 03/04/18 13:57 Chloride 100.9 mmol/L (98-107) 03/04/18 13:57 Carbon Dioxide 22 mmol/L (22-30) 03/04/18 13:57 Anion Gap 19 mmol/L 03/04/18 13:57 BUN 11 mg/dL (7-17) 03/04/18 13:57 Creatinine 0.5 mg/dL (0.7-1.2) L 03/04/18 13:57 Estimated GFR > 60 ml/min 03/04/18 13:57 BUN/Creatinine Ratio 22 % 03/04/18 13:57 Glucose 258 mg/dL (65-100) H 03/04/18 13:57 POC Glucose 138 (70-105) H 03/04/18 16:02 Ketones Quantitative Negative (Negative) 03/04/18 15:18 Calcium 9.0 mg/dL (8.4-10.2) 03/04/18 13:57 Total Bilirubin < 0.20 mg/dL (0.1-1.2) 03/04/18 13:57 AST 12 units/L (5-40) 03/04/18 13:57 ALT 22 units/L (7-56) 03/04/18 13:57 Alkaline Phosphatase 112 units/L (35-129) 03/04/18 13:57 Ammonia 61.0 umol/L (25-60) H 03/04/18 13:57 Troponin T < 0.010 ng/mL (0.00-0.029) 03/04/18 13:57 Total Protein 6.8 g/dL (6.3-8.2) 03/04/18 13:57 Albumin 3.7 g/dL (3.9-5) L 03/04/18 13:57 Albumin/Globulin Ratio 1.2 % 03/04/18 13:57 Urine Color Yellow (Yellow) 03/04/18 15:42 Urine Turbidity Clear (Clear) 03/04/18 15:42 Urine pH 5.0 (5.0-7.0) 03/04/18 15:42 Ur Specific [place] 1.023 (1.003-1.030) 03/04/18 15:42 Urine Protein <15 mg/dl mg/dL (Negative) 03/04/18 15:42 Urine Glucose (UA) >=500 mg/dL (Negative) 03/04/18 15:42 Urine Ketones Neg mg/dL (Negative) 03/04/18 15:42 Urine Blood Neg (Negative) 03/04/18 15:42 Urine Nitrite Neg (Negative) 03/04/18 15:42 Ur Reducing Substances Not Reportable 03/04/18 15:42 Urine Bilirubin Neg (Negative) 03/04/18 15:42 Urine Ictotest Not Reportable 03/04/18 15:42 Urine Urobilinogen 2.0 mg/dL (<2.0) 03/04/18 15:42 Ur Leukocyte Esterase Neg (Negative) 03/04/18 15:42 Urine WBC (Auto) 1.0 /HPF (0.0-6.0) 03/04/18 15:42 Urine RBC (Auto) 1.0 /HPF (0.0-6.0) 03/04/18 15:42 U Epithel Cells (Auto) 1.0 /HPF (0-13.0) 03/04/18 15:42 Urine Bacteria (Auto) 1+ /HPF (Negative) 03/04/18 15:42 Urine Mucus Few /HPF 03/04/18 15:42 Urine HCG, Qual Negative (Negative) 03/04/18 15:42 Urine Opiates Screen Presumptive negative 03/04/18 15:42 Urine Methadone Screen Presumptive negative 03/04/18 15:42 Ur Barbiturates Screen Presumptive negative 03/04/18 15:42 Ur Phencyclidine Scrn Presumptive negative 03/04/18 15:42 Ur Amphetamines Screen Presumptive negative 03/04/18 15:42 U Benzodiazepines Scrn Presumptive negative 03/04/18 15:42 Urine Cocaine Screen Presumptive negative 03/04/18 15:42 U Marijuana (THC) Screen Presumptive negative 03/04/18 15:42 Drugs of Abuse Note Disclamer 03/04/18 15:42 Short CBC 03/04/18 Range/Units 14:54 WBC 8.8 (4.5-11.0) K/mm3 Hgb 11.7 (10.1-14.3) gm/dl Hct 35.7 (30.3-42.9) % Plt Count 231 (140-440) K/mm3 BMP 03/04/18 13:57 Sodium 138 Potassium 3.6 Chloride 100.9 Carbon Dioxide 22 BUN 11 Creatinine 0.5 L Glucose 258 H Calcium 9.0 Cardiac Enzymes 03/04/18 Range/Units 13:57 Troponin T < 0.010 (0.00-0.029) ng/mL Liver Function 03/04/18 Range/Units 13:57 Total Bilirubin < 0.20 (0.1-1.2) mg/dL AST 12 (5-40) units/L ALT 22 (7-56) units/L Alkaline Phosphatase 112 (35-129) units/L Albumin 3.7 L (3.9-5) g/dL Urine 03/04/18 Range/Units 15:42 Urine Color Yellow (Yellow) Urine pH 5.0 (5.0-7.0) Ur Specific [place] 1.023 (1.003-1.030) Urine Protein <15 mg/dl (Negative) mg/dL Urine Glucose (UA) >=500 (Negative) mg/dL - Imaging and Cardiology EKG: report reviewed (normal sinus rhythm with LVH present) Imaging and Cardiology: CT of the head FINDINGS: Again seen is a calcified extra-axial mass in the right frontal region measuring approximately 2.2 x 1.9 centimeters, similar in appearance to the previous study. There is no mass effect or midline shift. There is no acute territorial infarct. There is no parenchymal hemorrhage or extra-axial fluid collection. The ventricles are midline and are not enlarged. The subarachnoid spaces and basilar cisterns are clear. There is no skull fracture. The paranasal sinuses and mastoid air cells are clear. The bilateral orbits are intact. IMPRESSION: Unchanged calcified extra-axial mass in the right frontal region, which may represent a meningioma. No acute intracranial abnormality. CXR IMPRESSION: No acute cardiopulmonary disease. 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 Patient initiated on hydrocortisone 20 mg in the morning and 10 mg in the evening along with lactulose. Patient has been noncompliant with medications (2) Hyperammonemia Current Visit: Yes Status: Acute Plan to address problem: Continue lactulose 40 mg twice a day (3) Type 2 diabetes mellitus Current Visit: Yes Status: Chronic Qualifiers: Diabetes mellitus manager long term care insulin use: without manager long term care use Plan to address problem: Metformin stopped Patient initiated on sliding scale insulin and Lantus 50 units at nighttime Primary team to decide about the hypoglycemics or insulin A1c is high (4) Hypertension Current Visit: Yes Status: Chronic Qualifiers: Hypertension type: essential hypertension Qualified Code(s): I10 - Essential (primary) hypertension Plan to address problem: Continue antihypertensives (5) Seizure disorder Current Visit: Yes Status: Chronic Plan to address problem: Keppra initiated No Dilantin (6) GERD (gastroesophageal reflux disease) Current Visit: Yes Status: Chronic Qualifiers: Esophagitis presence: without esophagitis Qualified Code(s): K21.9 - Gastro-esophageal reflux disease without esophagitis Plan to address problem: Continue PPIs (7) Meningioma Current Visit: Yes Status: Chronic Plan to address problem: Stable (8) Depression Current Visit: Yes Status: Chronic Qualifiers: Depression Type: unspecified Qualified Code(s): F32.9 - Major depressive disorder, single episode, unspecified Plan to address problem: Continue antidepressants (9) DVT prophylaxis Current Visit: Yes Status: Acute Plan to address problem: On Lovenox and PPIs for GI prophylaxis
[2018-03-04] MEDS ORDERED: ZOFRAN IV PRN (21:12)
[2018-03-04] MEDS ORDERED: TYLENOL PO PRN (21:12)
[2018-03-04] MEDS ORDERED: SODIUM CHLORIDE FLUSH SYRINGE 10 ML IV PRN (21:12)
[2018-03-04] MEDS ORDERED: DILAUDID IV PRN (21:19)
[2018-03-04] MEDS ORDERED: HumaLOG SUB-Q ONE (21:30)
[2018-03-04] MEDS ORDERED: PROTONIX PO ONE ×2 (22:00→22:50)
[2018-03-04] MEDS ORDERED: CEPHULAC PR SCH (22:00)
[2018-03-04] MEDS ORDERED: NACL 0.9% 1000 ML 1,000 ML IV SCH (22:00)
[2018-03-04] MEDS: SODIUM CHLORIDE FLUSH SYRINGE 10 ML IV SCH (22:34)
[2018-03-04] MEDS ORDERED: LOPRESSOR ONE (22:50)
[2018-03-04] MEDS: LOPRESSOR PO SCH (22:50)
[2018-03-04] MEDS ORDERED: NEURONTIN ONE (22:50)
[2018-03-04] MEDS: NEURONTIN PO SCH (22:51)
[2018-03-04] MEDS: celeXA PO SCH (22:55)
[2018-03-04] MEDS ORDERED: celeXA ONE ×2 (22:56→22:57)
[2018-03-04] MEDS: LANTUS SUB-Q SCH (23:50)
[2018-03-05] MEDS ORDERED: HumaLOG SUB-Q ONE (01:00)
[2018-03-05] MEDS: AMBIEN PO PRN ×2 (01:20→23:14)
[2018-03-05] MEDS: PROTONIX PO SCH ×2 (01:20→15:21)
[2018-03-05] MEDS: FLEXERIL PO SCH ×2 (01:20→10:09)
[2018-03-05] MEDS: NEURONTIN PO SCH ×3 (05:15→21:24)
[2018-03-05 09:22] LABS: Basophils % (Auto) 0.4 % (0.0-1.8); Eosinophils # (Auto) 0.1 K/mm3 (0.0-0.4); Eosinophils % (Auto) 1.1 % (0.0-4.3); Hematocrit 33.6 % (30.3-42.9); Lymphocytes # (Auto) 3.2 K/mm3 (1.2-5.4); Lymphocytes % (Auto) 39.2 % (13.4-35.0); Mean Corpuscular HGB Conc 33 % (30-34); Mean Corpuscular Volume 76 fl (79-97); Monocytes # (Auto) 0.5 K/mm3 (0.0-0.8); Monocytes % (Auto) 6.3 % (0.0-7.3); Platelet Count 224 K/mm3 (140-440); Red Blood Count 4.42 M/mm3 (3.65-5.03); Red Cell Distribution Width 19.6 % (13.2-15.2)
[2018-03-05 09:45] LABS: Alanine Aminotransferase 20 units/L (7-56); Albumin 3.8 g/dL (3.9-5); BUN/Creatinine Ratio 25; Blood Urea Nitrogen 10 mg/dL (7-17); Calcium 8.9 mg/dL (8.4-10.2); Hemolysis Index 3
[2018-03-05] MEDS ORDERED: CEPHULAC PO SCH (10:00)
[2018-03-05] MEDS ORDERED: KEPPRA PO SCH ×2 (10:00→22:00)
[2018-03-05] MEDS: CORTEF PO SCH ×2 (10:04→10:10)
[2018-03-05] MEDS: celeXA PO SCH (10:09)
[2018-03-05] MEDS: LOPRESSOR PO SCH (10:10)
[2018-03-05] MEDS: LOVENOX SUB-Q SCH (10:11)
[2018-03-05] MEDS: CEPHULAC PO SCH ×2 (11:05→18:03)
[2018-03-05] MEDS ORDERED: PHENERGAN PO PRN (12:33)
--- NOTE | 2018-03-05 12:39 | Consultation ---
History of Present Illness Consult date: 03/05/18 Requesting physician: VAZQUEZ MURILLO Reason for Consult: altered mental status History of present illness: This is a 52 yr old female who presented to ER per her daughter for altered mental status. She apparently is visiting from [place] and left without all of her medication because of a mail order mix-up. She was able to provide history, but speaks very slowly and is a poor historian. She was diagnosed with adrenal insufficiency several yrs. ago and started on hydrocortisone, which greatly improved her fatigue. She has a diagnosis of meningioma discovered in 2006. This was followed and as it was seen to enlarge on imaging, radiation was recommended and she received treatment with cyber-knife in 2010 It has been stable since then. She has never been operated for this tumor. She is unsure as to when she was diagnosed with elevated ammonia and why. She has had a TIA with numbness of the left side, uncertain as to when that happened. She now notes numbness coming and going from time to time. She also has fibromyalgia which restricts her activity. She is unsure of when she started having s eizures, but there is an ER note from 2016 stating that she presented with seizures and was given Keppra. She cannot remember when her last seizure was. She states that she also takes Dilantin. This combination seems to be working for her. CT scan in ER reveals a calcified meningioma, rt. frontal. It is stable compared to the study of 2016 Past History Past Medical History: diabetes, GERD, hypertension, seizures, other (fibromyalgia, peripheral neuropathy, ) Past Surgical History: hysterectomy Social history: lives with family Medications and Allergies Allergies Allergy/AdvReac Type Severity Reaction Status Date / Time No Known Allergies Allergy Verified 03/04/18 13:45 Home Medications Medication Instructions Recorded Confirmed Last Taken Type Metoprolol [Lopressor TAB] 50 mg PO ONCE 09/06/15 03/04/18 Unknown History metFORMIN [Glucophage] 500 mg PO BID 09/06/15 03/04/18 Unknown History Citalopram [celeXA] 40 mg PO QDAY 09/12/15 03/04/18 Unknown History Gabapentin [Neurontin] 300 mg PO Q8HR 09/12/15 03/04/18 Unknown History Pantoprazole Sodium 40 mg PO ONCE 09/12/15 03/04/18 Unknown History Cyclobenzaprine [Flexeril] 10 mg PO QHS 03/05/18 03/05/18 Unknown History Levetiracetam 1,000 mg PO BID 03/05/18 03/05/18 Unknown History Zolpidem [Ambien] 10 mg PO QHS 03/05/18 03/05/18 Unknown History Active Meds: Active Medications Acetaminophen (Tylenol) 650 mg PO Q4H PRN PRN Reason: Pain MILD(1-3)/Fever >100.5/PINEDA Last Admin: 03/05/18 10:42 Dose: 650 mg Documented by: Citalopram Hydrobromide (Celexa) 40 mg PO QDAY [facility] Last Admin: 03/05/18 10:09 Dose: 40 mg Documented by: Cyclobenzaprine HCl (Flexeril) 10 mg PO DAILY [facility] Last Admin: 03/05/18 10:09 Dose: 10 mg Documented by: Enoxaparin Sodium (Lovenox) 40 mg SUB-Q QDAY@1000 [facility] Last Admin: 03/05/18 10:11 Dose: 40 mg Documented by: Gabapentin (Neurontin) 300 mg PO Q8HR [facility] Last Admin: 03/05/18 05:15 Dose: 300 mg Documented by: Hydrocortisone Acetate (Cortef) 20 mg PO QAM [facility] Stop: 03/17/18 23:59 Last Admin: 03/05/18 10:10 Dose: 20 mg Documented by: Hydrocortisone Acetate (Cortef) 10 mg PO QDAY@2000 [facility] Stop: 03/18/18 19:59 Hydromorphone HCl (Dilaudid) 0.5 mg IV Q3H PRN PRN Reason: Pain , Severe (7-10) Ibuprofen (Motrin) 600 mg PO Q6H PRN PRN Reason: Pain, Mild (1-3) Insulin Glargine (Lantus) 15 units SUB-Q QHS [facility] Last Admin: 03/04/18 23:50 Dose: Not Given Documented by: Lactulose (Cephulac) 20 gm PO Q6HR [facility] Last Admin: 03/05/18 11:05 Dose: 20 gm Documented by: Levetiracetam (Keppra) 750 mg PO BID [facility] Last Admin: 03/05/18 10:09 Dose: 750 mg Documented by: Metoprolol Tartrate (Lopressor) 50 mg PO QDAY [facility] Last Admin: 03/05/18 10:10 Dose: 50 mg Documented by: Ondansetron HCl (Zofran) 4 mg IV Q8H PRN PRN Reason: Nausea And Vomiting Pantoprazole Sodium (Protonix) 40 mg PO QDAY [facility] Last Admin: 03/05/18 01:20 Dose: 40 mg Documented by: Promethazine HCl (Phenergan) 25 mg PO Q6H PRN PRN Reason: Nausea And Vomiting Sodium Chloride (Sodium Chloride Flush Syringe 10 Ml) 10 ml IV BID [facility] Last Admin: 03/04/18 22:34 Dose: 10 ml Documented by: Sodium Chloride (Sodium Chloride Flush Syringe 10 Ml) 10 ml IV PRN PRN PRN Reason: LINE FLUSH Zolpidem Tartrate (Ambien) 10 mg PO QHS PRN PRN Reason: Insomnia Last Admin: 03/05/18 01:20 Dose: 10 mg Documented by: Review of Systems All systems: negative (numbness in the feet, blurry vision, nausea, joint pain .) Physical Examination - Vital Signs Vital Signs: Vital Signs Temp Pulse Resp BP Pulse Ox 97.7 F 105 H 20 145/83 95 03/04/18 13:39 03/04/18 13:39 03/04/18 13:39 03/04/18 13:39 03/04/18 13:39 - Physical Exam Narrative exam: Neurological exam - Speech fluent, very slow mentation. CN's - EOMs full, no nystagmus. face symmetric, V-1 thru V-3 intact bilaterally. Tongue midline, hearing intact. Motor - 5/5. Poor effort and give way weakness on the left in the upper extremity. Left arm drifts down then comes up. Reflexes - trace throughout. Sensory - decreased left arm and left leg. Cerebellar - FTN, Khurram, fine finger movements intact. Gait assisted with cane. Arises independently. Uses cane for balance. Results - Laboratory Findings CBC and BMP: 03/05/18 07:57 03/05/18 07:57 Abnormal Lab Findings: Abnormal Labs 03/04/18 03/04/18 03/04/18 13:50 13:57 13:57 MCV MCH RDW Lymph % (Auto) Creatinine 0.5 L Glucose 258 H POC Glucose 273 H Hemoglobin A1c Ammonia 61.0 H Albumin 3.7 L 03/04/18 03/04/18 03/04/18 14:45 14:54 16:02 MCV 75 L MCH 25 L RDW 20.1 H Lymph % (Auto) Creatinine Glucose POC Glucose 138 H Hemoglobin A1c 8.8 H Ammonia Albumin 03/04/18 03/05/18 03/05/18 21:57 07:57 07:57 MCV 76 L MCH 25 L RDW 19.6 H Lymph % (Auto) 39.2 H Creatinine 0.4 L Glucose 105 H POC Glucose 171 H Hemoglobin A1c Ammonia Albumin 3.8 L 03/05/18 07:57 MCV MCH RDW Lymph % (Auto) Creatinine Glucose POC Glucose Hemoglobin A1c Ammonia 74.0 H Albumin Assessment and Plan 52 yr old female with multiple medical problems, off some of her routine meds, and presented with altered mental status. She seems to have cleared somewhat now that she is admitted. Plan - continue all meds as ordered. Agree with MRI Spoke with a nurse from Dr. George's office, her PCP. (The name given for the neurologist is not at the location for the number given). Their med list shows Keppra at 1000 mg in a.m. and 1500 in pm. Dilantin is 200 mg BID. Will adjust these meds accordingly.
[2018-03-05] MEDS: SODIUM CHLORIDE FLUSH SYRINGE 10 ML IV SCH ×2 (15:22→23:12)
--- NOTE | 2018-03-05 15:36 | Progress Note ---
Assessment and Plan Assessment and plan: Acute encephalopathy Confused neurocheck Addisons, disease Steroid replacement Elevated ammonia level. Lactulose Diabetes mellitus type 2 Morbid obesity Seizure disorder. No witnessed seizure Full code status History Interval history: Altered mental status Confused Hospitalist Physical - Physical exam Narrative exam: GEN: Not in acute distress,morbidly obese HEENT: Normocephalic, atraumatic, Neck: supple, No JVD Lungs: Clear to auscultation, no wheeze Heart:S1 and S2 regular, no murmurs, rubs or gallop, Abd:soft, non tender, non distended, normal bowel sounds Ext: No edema, no clubbing or cyanosis Neuro: Awake, confused Psych:Normal mood - Constitutional Vitals: Temp Pulse Resp BP Pulse Ox 98.7 F 81 18 137/83 94 03/05/18 12:30 03/05/18 12:30 03/05/18 12:30 03/05/18 12:30 03/05/18 12:30 General appearance: Present: no acute distress, well-nourished Results - Labs CBC & Chem 7: 03/05/18 07:57 03/05/18 07:57 Labs: Laboratory Last Values WBC 8.2 K/mm3 (4.5-11.0) 03/05/18 07:57 RBC 4.42 M/mm3 (3.65-5.03) 03/05/18 07:57 Hgb 11.0 gm/dl (10.1-14.3) 03/05/18 07:57 Hct 33.6 % (30.3-42.9) 03/05/18 07:57 MCV 76 fl (79-97) L 03/05/18 07:57 MCH 25 pg (28-32) L 03/05/18 07:57 MCHC 33 % (30-34) 03/05/18 07:57 RDW 19.6 % (13.2-15.2) H 03/05/18 07:57 Plt Count 224 K/mm3 (140-440) 03/05/18 07:57 Lymph % (Auto) 39.2 % (13.4-35.0) H 03/05/18 07:57 [place] % (Auto) 6.3 % (0.0-7.3) 03/05/18 07:57 Eos % (Auto) 1.1 % (0.0-4.3) 03/05/18 07:57 Baso % (Auto) 0.4 % (0.0-1.8) 03/05/18 07:57 Lymph # 3.2 K/mm3 (1.2-5.4) 03/05/18 07:57 [place] # 0.5 K/mm3 (0.0-0.8) 03/05/18 07:57 Eos # 0.1 K/mm3 (0.0-0.4) 03/05/18 07:57 Baso # 0.0 K/mm3 (0.0-0.1) 03/05/18 07:57 Total Counted Cancelled 03/04/18 14:54 Seg Neutrophils % 53.0 % (40.0-70.0) 03/05/18 07:57 Seg Neuts % (Manual) Cancelled 03/04/18 14:54 Band Neutrophils % Cancelled 03/04/18 14:54 Lymphocytes % (Manual) Cancelled 03/04/18 14:54 Reactive Lymphs % (Man) Cancelled 03/04/18 14:54 Monocytes % (Manual) Cancelled 03/04/18 14:54 Eosinophils % (Manual) Cancelled 03/04/18 14:54 Basophils % (Manual) Cancelled 03/04/18 14:54 Metamyelocytes % Cancelled 03/04/18 14:54 Myelocytes % Cancelled 03/04/18 14:54 Promyelocytes % Cancelled 03/04/18 14:54 Blast Cells % Cancelled 03/04/18 14:54 Nucleated RBC % Cancelled 03/04/18 14:54 Seg Neutrophils # 4.4 K/mm3 (1.8-7.7) 03/05/18 07:57 Seg Neutrophils # Man Cancelled 03/04/18 14:54 Band Neutrophils # Cancelled 03/04/18 14:54 Lymphocytes # (Manual) Cancelled 03/04/18 14:54 Abs React Lymphs (Man) Cancelled 03/04/18 14:54 Monocytes # (Manual) Cancelled 03/04/18 14:54 Eosinophils # (Manual) Cancelled 03/04/18 14:54 Basophils # (Manual) Cancelled 03/04/18 14:54 Metamyelocytes # Cancelled 03/04/18 14:54 Myelocytes # Cancelled 03/04/18 14:54 Promyelocytes # Cancelled 03/04/18 14:54 Blast Cells # Cancelled 03/04/18 14:54 WBC Morphology Cancelled 03/04/18 14:54 Hypersegmented Neuts Cancelled 03/04/18 14:54 Hyposegmented Neuts Cancelled 03/04/18 14:54 Hypogranular Neuts Cancelled 03/04/18 14:54 Hypersegmented Polys Cancelled 03/04/18 14:54 Smudge Cells Cancelled 03/04/18 14:54 Toxic Granulation Cancelled 03/04/18 14:54 Toxic Vacuolation Cancelled 03/04/18 14:54 Dohle Bodies Cancelled 03/04/18 14:54 Pelger-Huet Anomaly Cancelled 03/04/18 14:54 Kristie Rods Cancelled 03/04/18 14:54 Platelet Estimate Cancelled 03/04/18 14:54 Clumped Platelets Cancelled 03/04/18 14:54 Plt Clumps, EDTA Cancelled 03/04/18 14:54 Large Platelets Cancelled 03/04/18 14:54 Giant Platelets Cancelled 03/04/18 14:54 Platelet Satelliting Cancelled 03/04/18 14:54 Plt Morphology Comment Cancelled 03/04/18 14:54 RBC Morphology Cancelled 03/04/18 14:54 Dimorphic RBCs Cancelled 03/04/18 14:54 Polychromasia Cancelled 03/04/18 14:54 Hypochromasia Cancelled 03/04/18 14:54 Poikilocytosis Cancelled 03/04/18 14:54 Basophilic Stippling Cancelled 03/04/18 14:54 Anisocytosis Cancelled 03/04/18 14:54 Microcytosis Cancelled 03/04/18 14:54 Macrocytosis Cancelled 03/04/18 14:54 Spherocytes Cancelled 03/04/18 14:54 Pappenheimer Bodies Cancelled 03/04/18 14:54 Sickle Cells Cancelled 03/04/18 14:54 Target Cells Cancelled 03/04/18 14:54 Tear Drop Cells Cancelled 03/04/18 14:54 Ovalocytes Cancelled 03/04/18 14:54 Stomatocytes Cancelled 03/04/18 14:54 Helmet Cells Cancelled 03/04/18 14:54 Hines-Ossun Bodies Cancelled 03/04/18 14:54 [place]ar Rings Cancelled 03/04/18 14:54 [place] Cells Cancelled 03/04/18 14:54 Bite Cells Cancelled 03/04/18 14:54 Crenated Cell Cancelled 03/04/18 14:54 Elliptocytes Cancelled 03/04/18 14:54 Acanthocytes (Spur) Cancelled 03/04/18 14:54 Rouleaux Cancelled 03/04/18 14:54 Hemoglobin C Crystals Cancelled 03/04/18 14:54 Schistocytes Cancelled 03/04/18 14:54 Malaria parasites Cancelled 03/04/18 14:54 Lauri Bodies Cancelled 03/04/18 14:54 Hem Pathologist Commnt Cancelled 03/04/18 14:54 PT 14.4 Sec. (12.2-14.9) 03/04/18 13:57 INR 1.08 (0.87-1.13) 03/04/18 13:57 VBG pH 7.361 (7.320-7.420) 03/04/18 15:18 Sodium 142 mmol/L (137-145) 03/05/18 07:57 Potassium 3.6 mmol/L (3.6-5.0) 03/05/18 07:57 Chloride 103.4 mmol/L (98-107) 03/05/18 07:57 Carbon Dioxide 25 mmol/L (22-30) 03/05/18 07:57 Anion Gap 17 mmol/L 03/05/18 07:57 BUN 10 mg/dL (7-17) 03/05/18 07:57 Creatinine 0.4 mg/dL (0.7-1.2) L 03/05/18 07:57 Estimated GFR > 60 ml/min 03/05/18 07:57 BUN/Creatinine Ratio 25 % 03/05/18 07:57 Glucose 105 mg/dL (65-100) H 03/05/18 07:57 POC Glucose 164 (70-105) H 03/05/18 12:34 Hemoglobin A1c 8.8 % (4-6) H 03/04/18 14:45 Ketones Quantitative Negative (Negative) 03/04/18 15:18 Calcium 8.9 mg/dL (8.4-10.2) 03/05/18 07:57 Total Bilirubin < 0.20 mg/dL (0.1-1.2) 03/05/18 07:57 AST 12 units/L (5-40) 03/05/18 07:57 ALT 20 units/L (7-56) 03/05/18 07:57 Alkaline Phosphatase 109 units/L (35-129) 03/05/18 07:57 Ammonia 74.0 umol/L (25-60) H 03/05/18 07:57 Troponin T < 0.010 ng/mL (0.00-0.029) 03/04/18 13:57 Total Protein 6.7 g/dL (6.3-8.2) 03/05/18 07:57 Albumin 3.8 g/dL (3.9-5) L 03/05/18 07:57 Albumin/Globulin Ratio 1.3 % 03/05/18 07:57 Urine Color Yellow (Yellow) 03/04/18 15:42 Urine Turbidity Clear (Clear) 03/04/18 15:42 Urine pH 5.0 (5.0-7.0) 03/04/18 15:42 Ur Specific [place] 1.023 (1.003-1.030) 03/04/18 15:42 Urine Protein <15 mg/dl mg/dL (Negative) 03/04/18 15:42 Urine Glucose (UA) >=500 mg/dL (Negative) 03/04/18 15:42 Urine Ketones Neg mg/dL (Negative) 03/04/18 15:42 Urine Blood Neg (Negative) 03/04/18 15:42 Urine Nitrite Neg (Negative) 03/04/18 15:42 Ur Reducing Substances Not Reportable 03/04/18 15:42 Urine Bilirubin Neg (Negative) 03/04/18 15:42 Urine Ictotest Not Reportable 03/04/18 15:42 Urine Urobilinogen 2.0 mg/dL (<2.0) 03/04/18 15:42 Ur Leukocyte Esterase Neg (Negative) 03/04/18 15:42 Urine WBC (Auto) 1.0 /HPF (0.0-6.0) 03/04/18 15:42 Urine RBC (Auto) 1.0 /HPF (0.0-6.0) 03/04/18 15:42 U Epithel Cells (Auto) 1.0 /HPF (0-13.0) 03/04/18 15:42 Urine Bacteria (Auto) 1+ /HPF (Negative) 03/04/18 15:42 Urine Mucus Few /HPF 03/04/18 15:42 Urine HCG, Qual Negative (Negative) 03/04/18 15:42 Urine Opiates Screen Presumptive negative 03/04/18 15:42 Urine Methadone Screen Presumptive negative 03/04/18 15:42 Ur Barbiturates Screen Presumptive negative 03/04/18 15:42 Ur Phencyclidine Scrn Presumptive negative 03/04/18 15:42 Ur Amphetamines Screen Presumptive negative 03/04/18 15:42 U Benzodiazepines Scrn Presumptive negative 03/04/18 15:42 Urine Cocaine Screen Presumptive negative 03/04/18 15:42 U Marijuana (THC) Screen Presumptive negative 03/04/18 15:42 Drugs of Abuse Note Disclamer 03/04/18 15:42
[2018-03-05] MEDS ORDERED: D50W (25GM) Syringe IV PRN (17:25)
--- NOTE | 2018-03-05 17:43 | Magnetic Resonance Report ---
FINAL REPORT EXAM: MR BRAIN WO/W CON HISTORY: Altered mental status, mass on CT Head, inpatient TECHNIQUE: Multiplanar multisequence brain MR imaging before and after IV contrast. PRIORS: Head CT 03/04/2018 and 09/12/2015 FINDINGS: Diffusely enhancing smoothly marginated extra-axial lesion is again present adjacent to the base of t he posterior right frontal lobe. Maximum dimension again measures 22 mm. The most likely consideratio n remains right sphenoid wing meningioma, relatively unchanged from 2016. No new mass effect on adjac ent brain. No definite adjacent brain edema. It is low signal on T1, T2, and FLAIR sequences, likely corresponding to dense calcification on CT. The included air filled sinuses contain no acute fluid level. The brain is without intra-axial mass, mass effect, hemorrhage, or acute infarct. There are no areas of brain restricted diffusion to suggest an acute ischemic infarct. There is no midline shift or brai n edema. The ventricles and sulci are age-appropriate. No abnormal intra-axial IV contrast enhancemen t is visualized. IMPRESSION: No acute CVA or intra-axial brain mass Stable extra-axial nodule most compatible with right sphenoid wing meningioma, relatively unchanged f rom 2016
[2018-03-05] MEDS ORDERED: CORTEF PO SCH (20:00)
[2018-03-05] MEDS: DILANTIN PO SCH (21:23)
[2018-03-05] MEDS ORDERED: HumaLOG SUB-Q SCH (22:00)
[2018-03-05] MEDS: LANTUS SUB-Q SCH (23:11)
[2018-03-06] MEDS: NEURONTIN PO SCH ×2 (05:41→13:08)
[2018-03-06] MEDS: IBUPROFEN PO PRN ×2 (05:44→13:08)
[2018-03-06] MEDS: CEPHULAC PO SCH ×3 (05:45→12:35)
[2018-03-06] MEDS: HumaLOG SUB-Q SCH ×3 (07:55→17:12)
[2018-03-06 09:24] VITALS: BP 136/76
[2018-03-06] MEDS: PROTONIX PO SCH (09:42)
[2018-03-06] MEDS: LOVENOX SUB-Q SCH (09:42)
[2018-03-06] MEDS: CORTEF PO SCH (09:42)
[2018-03-06] MEDS: LOPRESSOR PO SCH (09:43)
[2018-03-06] MEDS: FLEXERIL PO SCH (09:43)
[2018-03-06] MEDS: celeXA PO SCH (09:43)
[2018-03-06] MEDS: DILANTIN PO SCH (09:48)
[2018-03-06] MEDS: SODIUM CHLORIDE FLUSH SYRINGE 10 ML IV SCH (09:49)
[2018-03-06] MEDS ORDERED: KEPPRA PO SCH (10:00)
--- NOTE | 2018-03-06 10:24 | Discharge Summary ---
Providers - Providers Date of Admission: 03/04/18 21:12 Date of discharge: 03/06/18 Attending physician: VAZQUEZ MURILLO 03/04/18 Consult to Case Management [CONS] Routine Services Needed at Discharge: Home Health Services Photocopying Equipment Mechanic Notified:: bilingual case manager 03/05/18 11:08 Consult to Physician [CONS] Routine Comment: Consulting Provider: ANGELICA SPARKS Physician Instructions: Reason For Exam: Altered mental status, confused Primary care physician: KONSTANTIN REYEZ Hospitalization Condition: Good Hospital course: Patient is 52 yo with seizure disorder, diabetes, hypertension, Addisons disease. She presented with altered mental status. She was admitted , evaluated by Neurology. Her home meds were restarted. Patient has been off her medications.She improved in few days, went back to baseline and was discharged home. Total time spent 31 mins. Disposition: TO HOME OR SELFCARE - Discharge Diagnoses (1) Acute encephalopathy Status: Acute (2) Altered mental status Status: Acute (3) Hyperammonemia Status: Acute (4) Depression Status: Chronic Qualifiers: Depression Type: unspecified Qualified Code(s): F32.9 - Major depressive disorder, single episode, unspecified (5) GERD (gastroesophageal reflux disease) Status: Chronic Qualifiers: Esophagitis presence: without esophagitis Qualified Code(s): K21.9 - Gastro-esophageal reflux disease without esophagitis (6) Gastroesophageal reflux disease Status: Chronic (7) Hypertension Status: Chronic Qualifiers: Hypertension type: essential hypertension Qualified Code(s): I10 - Essential (primary) hypertension (8) Seizure disorder Status: Chronic (9) Type 2 diabetes mellitus Status: Chronic Qualifiers: Diabetes mellitus keno terminal operator insulin use: without half-way use Diabetes mellitus complication status: without complication Qualified Code(s): E11.9 - Type 2 diabetes mellitus without complications Core Measure Documentation - Palliative Care Palliative Care/ Comfort Measures: Not Applicable - Core Measures Any of the following diagnoses?: none Exam - Constitutional Vitals: Temp Pulse Resp BP Pulse Ox 97.9 F 93 H 16 136/76 93 03/06/18 08:39 03/06/18 09:43 03/06/18 08:39 03/06/18 09:43 03/06/18 08:39 Plan Activity: advance as tolerated Diet: low fat, low cholesterol, low salt Additional Instructions: 1.Follow up with PCP in 1 week. Prescriptions: Lactulose [Cephulac] 20 gm PO BID 14 Days oral.liqd
== END 2018-03-06 17:13 | disposition home or self-care (01) | DRG 71 ==
LOC: ED 13:18 → 4A 21:12
PROVIDERS: ADMIT Internal Medicine; ATTEND Internal Medicine
DX: G93.40 Encephalopathy, unspecified (principal); E72.20 Disorder of urea cycle metabolism, unspecified; E11.51 Type 2 diabetes mellitus with diabetic peripheral angiopathy without gangrene; K21.9 Gastro-esophageal reflux disease without esophagitis; E11.42 Type 2 diabetes mellitus with diabetic polyneuropathy; M79.7 Fibromyalgia; G40.909 Epilepsy, unspecified, not intractable, without status epilepticus; E11.22 Type 2 diabetes mellitus with diabetic chronic kidney disease; I12.9 Hypertensive chronic kidney disease with stage 1 through stage 4 chronic kidney disease, or unspecified chronic kidney disease; G43.909 Migraine, unspecified, not intractable, without status migrainosus; D32.9 Benign neoplasm of meninges, unspecified; F32.9 Major depressive disorder, single episode, unspecified; Z90.710 Acquired absence of both cervix and uterus; Z79.899 Other long term (current) drug therapy; Z86.73 Personal history of transient ischemic attack (TIA), and cerebral infarction without residual deficits
CPT/HCPCS: 36415; 70450; 70553; 71046; 80053; 80185; 80307; 81001; 81025; 82010; 82024; 82140; 82533; 82805; 82962; 83036; 84484; 85025; 85610; 87040; 93005; 93010; G0378; A9577; J1100; J1650; J1815; J7030

== ENCOUNTER 2018-07-10 00:32 | Emergency (ER) | payer MEDICAID ==
[2018-07-10] MEDS ORDERED: KEPPRA 1,000 MG/NS 0.75% 100ML 1,000 MG/100 ML BAG IV ONE (01:28)
[2018-07-10 01:55] LABS: Basophils # (Auto) 0.1 K/mm3 (0.0-0.1); Basophils % (Auto) 1.2 % (0.0-1.8); Eosinophils % (Auto) 0.4 % (0.0-4.3); Hematocrit 36.5 % (30.3-42.9); Hemoglobin 12.1 gm/dl (10.1-14.3); Lymphocytes # (Auto) 3.1 K/mm3 (1.2-5.4); Lymphocytes % (Auto) 27.1 % (13.4-35.0); Mean Corpuscular HGB Conc 33 % (30-34); Mean Corpuscular Volume 76 fl (79-97); Monocytes # (Auto) 0.8 K/mm3 (0.0-0.8); Monocytes % (Auto) 7.4 % (0.0-7.3); Platelet Count 217 K/mm3 (140-440); Red Blood Count 4.77 M/mm3 (3.65-5.03)
[2018-07-10 01:56] LABS: Red Cell Distribution Width 20.7 % (13.2-15.2)
--- NOTE | 2018-07-10 02:03 | XRay Report ---
PROCEDURE: XR CHEST 1V AP TECHNIQUE: Chest radiograph single view. HISTORY: chest pain COMPARISONS: March 04, 2018 . FINDINGS: Heart: Normal. Mediastinum/Vessels: Normal. Lungs/Pleural space: Normal. Bony thorax: No acute osseous abnormality. Life support devices: None. IMPRESSION: No acute cardiopulmonary abnormality. This document is electronically signed by Ayde Baugh DO., Jul 10 2018 02:01:30 AM ET
[2018-07-10 02:18] LABS: INR 1.01 (0.87-1.13); Partial Thromboplastin Time 27.2 Sec. (24.2-36.6)
[2018-07-10 02:31] LABS: Alanine Aminotransferase 41 units/L (7-56); Albumin 3.6 g/dL (3.9-5); BUN/Creatinine Ratio 16; Blood Urea Nitrogen 11 mg/dL (7-17); Calcium 9.7 mg/dL (8.4-10.2); Hemolysis Index 60
[2018-07-10] MEDS ORDERED: PEPCID IV ONE (02:41)
[2018-07-10] MEDS ORDERED: TORADOL IV ONE (02:41)
--- NOTE | 2018-07-10 03:13 | Emergency Department Report ---
ED Seizure HPI - General Chief Complaint: Seizure Stated Complaint: CP/HYERGLYCEMIA Time Seen by Provider: 07/10/18 01:16 Source: EMS Mode of arrival: Stretcher Limitations: Altered Mental Status - History of Present Illness Initial Comments: Patient is a 52-year-old female past medical history hypertension adrenal insufficiency meningioma that was diagnosed in 2016 was treated with CyberKnife in 2010 increased ammonia level with no history of liver disease who is presenting status post seizure. Patient has a known seizure disorder. Last admission here in our hospital was in February 2018 with patient was here for encephalopathy likely secondary to hyperammonemia. No seizure activities were seen at that time. Patient takes Keppra as well as Dilantin. Patient was at a [employer] and according to paramedics they were called because of the patient having chest pain. Patient then was noted by paramedics to have had a seizure. Patient is postictal at this time and is able to follow commands but is currently nonverbal. Patient is poor historian secondary to likely being in a postictal phase. - Related Data Home Medications Medication Instructions Recorded Confirmed Last Taken metFORMIN [Glucophage] 500 mg PO BID 09/06/15 03/04/18 Unknown Citalopram [Celexa] 40 mg PO QDAY 09/12/15 03/04/18 Unknown Gabapentin [Neurontin] 300 mg PO Q8HR 09/12/15 03/04/18 Unknown Cyclobenzaprine [Flexeril 10 MG 10 mg PO QHS 03/05/18 03/05/18 Unknown TAB] Levetiracetam 1,000 mg PO BID 03/05/18 03/05/18 Unknown Zolpidem [Ambien] 10 mg PO QHS 03/05/18 03/05/18 Unknown Docusate Sodium [Dok] 100 mg PO BID 03/06/18 03/06/18 Unknown Duloxetine HCl [DULoxetine] 60 mg PO DAILY 03/06/18 03/06/18 Unknown Ergocalciferol [Vitamin D2] 1 cap PO QWEEK 03/06/18 03/06/18 Unknown Etodolac 300 mg PO BID 03/06/18 03/06/18 Unknown Fenofibrate 160 mg PO DAILY 03/06/18 03/06/18 Unknown Glimepiride [Amaryl] 1 mg PO DAILY 03/06/18 03/06/18 Unknown Hydrocortisone [Cortef TAB] 10 mg PO DAILY 03/06/18 03/06/18 Unknown Losartan Potassium [Cozaar] 50 mg PO DAILY 03/06/18 03/06/18 Unknown Metoprolol Succinate [Toprol Xl] 50 mg PO DAILY MDD 1 03/06/18 03/06/18 Unknown Pantoprazole Sodium 40 mg PO DAILY 03/06/18 03/06/18 Unknown Thiamine HCl [Vitamin B-1] 100 mg PO DAILY 03/06/18 03/06/18 Unknown Zolpidem Tartrate [Ambien] 10 mg PO QHS 03/06/18 03/06/18 Unknown Previous Rx's Medication Instructions Recorded Last Taken Type Lactulose [Cephulac] 20 gm PO BID 14 Days oral.liqd 03/06/18 Unknown Rx Phenytoin [Dilantin] 100 mg PO BID #60 capsule.er 07/10/18 Unknown Rx levETIRAcetam [Keppra TAB] 1,000 mg PO BID #60 tab 07/10/18 Unknown Rx Allergies Allergy/AdvReac Type Severity Reaction Status Date / Time No Known Allergies Allergy Verified 03/04/18 13:45 ED Review of Systems ROS: Stated complaint: CP/HYERGLYCEMIA Other details as noted in HPI Comment: Unobtainable due to pts medical conditions ED Past Medical Hx - Past Medical History Previous Medical History?: Yes Hx Hypertension: Yes Hx CVA: Yes Hx Congestive Heart Failure: No Hx Diabetes: Yes Hx GERD: Yes Hx Liver Disease: Yes Hx Renal Disease: Yes (CKD) Hx Headaches / Migraines: Yes Hx Seizures: Yes Hx Asthma: No Hx COPD: No Hx Dementia: No Additional medical history: Brain Tumor, adrenal insufficiency, fibromyalgia - Social History Smoking Status: Unknown if ever smoked Substance Use Type: None - Medications Home Medications: Home Medications Medication Instructions Recorded Confirmed Last Taken Type metFORMIN [Glucophage] 500 mg PO BID 09/06/15 03/04/18 Unknown History Citalopram [Celexa] 40 mg PO QDAY 09/12/15 03/04/18 Unknown History Gabapentin [Neurontin] 300 mg PO Q8HR 09/12/15 03/04/18 Unknown History Cyclobenzaprine [Flexeril 10 MG 10 mg PO QHS 03/05/18 03/05/18 Unknown History TAB] Levetiracetam 1,000 mg PO BID 03/05/18 03/05/18 Unknown History Zolpidem [Ambien] 10 mg PO QHS 03/05/18 03/05/18 Unknown History Docusate Sodium [Dok] 100 mg PO BID 03/06/18 03/06/18 Unknown History Duloxetine HCl [DULoxetine] 60 mg PO DAILY 03/06/18 03/06/18 Unknown History Ergocalciferol [Vitamin D2] 1 cap PO QWEEK 03/06/18 03/06/18 Unknown History Etodolac 300 mg PO BID 03/06/18 03/06/18 Unknown History Fenofibrate 160 mg PO DAILY 03/06/18 03/06/18 Unknown History Glimepiride [Amaryl] 1 mg PO DAILY 03/06/18 03/06/18 Unknown History Hydrocortisone [Cortef TAB] 10 mg PO DAILY 03/06/18 03/06/18 Unknown History Lactulose [Cephulac] 20 gm PO BID 14 Days oral.liqd 03/06/18 Unknown Rx Losartan Potassium [Cozaar] 50 mg PO DAILY 03/06/18 03/06/18 Unknown History Metoprolol Succinate [Toprol Xl] 50 mg PO DAILY MDD 1 03/06/18 03/06/18 Unknown History Pantoprazole Sodium 40 mg PO DAILY 03/06/18 03/06/18 Unknown History Thiamine HCl [Vitamin B-1] 100 mg PO DAILY 03/06/18 03/06/18 Unknown History Zolpidem Tartrate [Ambien] 10 mg PO QHS 03/06/18 03/06/18 Unknown History Phenytoin [Dilantin] 100 mg PO BID #60 capsule.er 07/10/18 Unknown Rx levETIRAcetam [Keppra TAB] 1,000 mg PO BID #60 tab 07/10/18 Unknown Rx ED Physical Exam - General Limitations: Altered Mental Status General appearance: alert, in no apparent distress - Head Head exam: Present: atraumatic, normocephalic - Eye Eye exam: Present: normal appearance, PERRL, EOMI - ENT ENT exam: Present: normal orophraynx, mucous membranes moist - Neck Neck exam: Present: normal inspection - Respiratory Respiratory exam: Present: normal lung sounds bilaterally. Absent: respiratory distress, wheezes, rales, rhonchi - Cardiovascular Cardiovascular Exam: Present: regular rate, normal rhythm, normal heart sounds. Absent: systolic murmur, diastolic murmur, rubs, gallop - GI/Abdominal GI/Abdominal exam: Present: soft, normal bowel sounds. Absent: distended, tenderness, guarding, rebound - Extremities Exam Extremities exam: Present: normal inspection - Back Exam Back exam: Present: normal inspection - Neurological Exam Neurological exam: Present: alert, altered, CN II-XII intact, other (patient moving all extremities and is able to follow commands). Absent: motor sensory deficit - Psychiatric Psychiatric exam: Present: normal affect, normal mood - Skin Skin exam: Present: warm, dry, intact, normal color. Absent: rash ED Course Vital Signs 07/10/18 07/10/18 07/10/18 00:39 00:48 01:00 Temperature 98.9 F Pulse Rate 97 H 94 H Respiratory 18 11 L Rate Blood Pressure 155/97 151/89 O2 Sat by Pulse 95 97 95 Oximetry 07/10/18 01:06 Temperature Pulse Rate Respiratory 12 Rate Blood Pressure O2 Sat by Pulse 97 Oximetry - Reevaluation(s) Reevaluation #1: 07/10/18 03:09 Patient currently is speaking again in mostly full sentences however is very slow. Patient states that she wants to have her ammonia level checked which I did explain to her that this is something that we were going to be evaluated. Patient mostly is answering yes or no questions when asked. Patient states that she remembers having chest pain without shortness of breath while at [facility]. Patient 5 months ago had a very similar episode and was admitted for several days. Reevaluation #2: 07/10/18 03:14 Patient loaded with a gram of Keppra empirically. Patient Dilantin level was low at 1.7. Patient was loaded with a gram of Dilantin. ED Medical Decision Making - Lab Data Result diagrams: 07/10/18 01:36 07/10/18 01:36 Lab Results 07/10/18 07/10/18 07/10/18 Range/Units 01:36 01:36 01:36 WBC 11.3 H (4.5-11.0) K/mm3 RBC 4.77 (3.65-5.03) M/mm3 Hgb 12.1 (10.1-14.3) gm/dl Hct 36.5 (30.3-42.9) % MCV 76 L (79-97) fl MCH 25 L (28-32) pg MCHC 33 (30-34) % RDW 20.7 H (13.2-15.2) % Plt Count 217 (140-440) K/mm3 Lymph % (Auto) 27.1 (13.4-35.0) % [place] % (Auto) 7.4 H (0.0-7.3) % Eos % (Auto) 0.4 (0.0-4.3) % Baso % (Auto) 1.2 (0.0-1.8) % Lymph # 3.1 (1.2-5.4) K/mm3 [place] # 0.8 (0.0-0.8) K/mm3 Eos # 0.0 (0.0-0.4) K/mm3 Baso # 0.1 (0.0-0.1) K/mm3 Seg Neutrophils % 63.9 (40.0-70.0) % Seg Neutrophils # 7.2 (1.8-7.7) K/mm3 PT 13.9 (12.2-14.9) Sec. INR 1.01 (0.87-1.13) APTT 27.2 (24.2-36.6) Sec. Sodium 137 (137-145) mmol/L Potassium 4.9 (3.6-5.0) mmol/L Chloride 100.7 (98-107) mmol/L Carbon Dioxide 21 L (22-30) mmol/L Anion Gap 20 mmol/L BUN 11 (7-17) mg/dL Creatinine 0.7 (0.7-1.2) mg/dL Estimated GFR > 60 ml/min BUN/Creatinine Ratio 16 % Glucose 308 H (65-100) mg/dL Calcium 9.7 (8.4-10.2) mg/dL Total Bilirubin < 0.20 (0.1-1.2) mg/dL AST 36 (5-40) units/L ALT 41 (7-56) units/L Alkaline Phosphatase 93 (35-129) units/L Ammonia (25-60) umol/L Troponin T (0.00-0.029) ng/mL Total Protein 7.1 (6.3-8.2) g/dL Albumin 3.6 L (3.9-5) g/dL Albumin/Globulin Ratio 1.0 % Phenytoin (10.0-20.0) ug/mL Plasma/Serum Alcohol (0-0.07) % 07/10/18 07/10/18 07/10/18 Range/Units 01:36 01:36 01:36 WBC (4.5-11.0) K/mm3 RBC (3.65-5.03) M/mm3 Hgb (10.1-14.3) gm/dl Hct (30.3-42.9) % MCV (79-97) fl MCH (28-32) pg MCHC (30-34) % RDW (13.2-15.2) % Plt Count (140-440) K/mm3 Lymph % (Auto) (13.4-35.0) % [place] % (Auto) (0.0-7.3) % Eos % (Auto) (0.0-4.3) % Baso % (Auto) (0.0-1.8) % Lymph # (1.2-5.4) K/mm3 [place] # (0.0-0.8) K/mm3 Eos # (0.0-0.4) K/mm3 Baso # (0.0-0.1) K/mm3 Seg Neutrophils % (40.0-70.0) % Seg Neutrophils # (1.8-7.7) K/mm3 PT (12.2-14.9) Sec. INR (0.87-1.13) APTT (24.2-36.6) Sec. Sodium (137-145) mmol/L Potassium (3.6-5.0) mmol/L Chloride (98-107) mmol/L Carbon Dioxide (22-30) mmol/L Anion Gap mmol/L BUN (7-17) mg/dL Creatinine (0.7-1.2) mg/dL Estimated GFR ml/min BUN/Creatinine Ratio % Glucose (65-100) mg/dL Calcium (8.4-10.2) mg/dL Total Bilirubin (0.1-1.2) mg/dL AST (5-40) units/L ALT (7-56) units/L Alkaline Phosphatase (35-129) units/L Ammonia 29.0 (25-60) umol/L Troponin T < 0.010 (0.00-0.029) ng/mL Total Protein (6.3-8.2) g/dL Albumin (3.9-5) g/dL Albumin/Globulin Ratio % Phenytoin (10.0-20.0) ug/mL Plasma/Serum Alcohol < 0.01 (0-0.07) % 07/10/18 Range/Units 01:36 WBC (4.5-11.0) K/mm3 RBC (3.65-5.03) M/mm3 Hgb (10.1-14.3) gm/dl Hct (30.3-42.9) % MCV (79-97) fl MCH (28-32) pg MCHC (30-34) % RDW (13.2-15.2) % Plt Count (140-440) K/mm3 Lymph % (Auto) (13.4-35.0) % [place] % (Auto) (0.0-7.3) % Eos % (Auto) (0.0-4.3) % Baso % (Auto) (0.0-1.8) % Lymph # (1.2-5.4) K/mm3 [place] # (0.0-0.8) K/mm3 Eos # (0.0-0.4) K/mm3 Baso # (0.0-0.1) K/mm3 Seg Neutrophils % (40.0-70.0) % Seg Neutrophils # (1.8-7.7) K/mm3 PT (12.2-14.9) Sec. INR (0.87-1.13) APTT (24.2-36.6) Sec. Sodium (137-145) mmol/L Potassium (3.6-5.0) mmol/L Chloride (98-107) mmol/L Carbon Dioxide (22-30) mmol/L Anion Gap mmol/L BUN (7-17) mg/dL Creatinine (0.7-1.2) mg/dL Estimated GFR ml/min BUN/Creatinine Ratio % Glucose (65-100) mg/dL Calcium (8.4-10.2) mg/dL Total Bilirubin (0.1-1.2) mg/dL AST (5-40) units/L ALT (7-56) units/L Alkaline Phosphatase (35-129) units/L Ammonia (25-60) umol/L Troponin T (0.00-0.029) ng/mL Total Protein (6.3-8.2) g/dL Albumin (3.9-5) g/dL Albumin/Globulin Ratio % Phenytoin 1.7 L (10.0-20.0) ug/mL Plasma/Serum Alcohol (0-0.07) % - Medical Decision Making Patient is a 52-year-old female who was in [facility] and began having some chest discomfort and then proceeded to have a seizure. Patient currently at this time. 5 AM is no longer postictal and is lucid. Patient states that she does have her seizure medications but has not been taking them as scheduled. She states she "takes them here and there". Patient is chest pain-free at this time. She has 2 negative troponins and will be given outpatient cardiology follow-up. Patient given refills of her seizure medications. Patient was ambulatory just prior to receiving her Dilantin and did still exhibit some dizziness. Patient was monitored until she was able to ambulate unassisted. Critical Care Time: Yes (30) Critical care attestation.: If time is entered above; I have spent that time in minutes in the direct care of this critically ill patient, excluding procedure time. ED Disposition Clinical Impression: Seizure disorder Chest pain Qualifiers: Chest pain type: unspecified Qualified Code(s): R07.9 - Chest pain, unspecified Disposition: DC-01 TO HOME OR SELFCARE Is pt being admited?: No Does the pt Need Aspirin: No Condition: Stable Instructions: Chest Pain (ED) Prescriptions: Phenytoin [Dilantin] 100 mg PO BID #60 capsule.er levETIRAcetam [Keppra TAB] 1,000 mg PO BID #60 tab Referrals: [facility] [Provider Group] - 3-5 Days Time of Disposition: 05:07 - Assessment Assessment Interval: Baseline - Level of Consciousness 1a. Level of Consciousness: alert/keenly responsive - LOC Questions 1b. LOC Questions: answers both correctly - LOC Command 1c. LOC Commands: performs tasks correctly - Best Gaze 2. Best Gaze: normal - Visual 3. Visual: no visual loss - Facial Palsy 4. Facial Palsy: normal symmetrical movement - Motor Arm 5a. Motor Arm Left: no drift 5b. Motor Arm Right: no drift - Motor Leg 6a. Motor Leg Left: no drift 6b. Motor Leg Right: no drift - Limb Ataxia 7. Limb Ataxia: absent - Sensory 8. Sensory: normal - Best Language 9. Best Language: mild/moderate aphasia - Dysarthria 10. Dysarthria: normal - Extinction and Inattention 11. Extinction/Inattention: no abnormality - Scoring Total Score: 1 Stroke Severity: Minor Stroke
[2018-07-10] MEDS ORDERED: DILANTIN 1,000 MG in NACL 0.9% 250ML 250 ML IV ONE (03:15)
--- NOTE | 2018-07-10 03:46 | Cat Scan Report ---
PROCEDURE: CT HEAD/BRAIN WO CON TECHNIQUE: Computerized tomography of the head was performed without contrast material. CT DOSE LENGTH PRODUCT: 920.5 mGycm HISTORY: seizure, headache COMPARISONS: March 05, 2018 . FINDINGS: Skull and scalp: Normal . Paranasal sinuses: Normal . Ventricles and subarachnoid spaces: Normal . Cerebrum: There is no evidence of acute intracranial hemorrhage, hematoma or infarction. A calcified mass in the anterior right temporal fossa measures up to 2.3 cm. Appears pleural-based and is most l ikely a meningioma. This is not changed significantly since prior exam. . Cerebellum and brainstem: No evidence of hemorrhage, acute infarction or mass . Vasculature: Normal . Other: None . ASPECTS: 10 IMPRESSION: There is no evidence of an acute intracranial process. Unchanged calcified mass in the a nterior right temporal fossa measures up to 2.3 cm this most likely a calcified meningioma. . This document is electronically signed by Ayde Baugh DO., Jul 10 2018 03:44:11 AM ET
[2018-07-10] MEDS ORDERED: NACL 0.9% 1000 ML 1,000 ML IV ONE (04:23)
[2018-07-10] MEDS ORDERED: NACL 0.9% 1000 ML 1,000 ML ONE (04:23)
[2018-07-10] MEDS ORDERED: NACL 0.9% 500 ML 500 ML IV ONE (07:53)
[2018-07-10 09:32] VITALS: BP 154/79
== END 2018-07-10 10:02 | disposition home or self-care (01) ==
LOC: ED 00:32
DX: G40.909 Epilepsy, unspecified, not intractable, without status epilepticus (principal); R07.89 Other chest pain; K21.9 Gastro-esophageal reflux disease without esophagitis; E11.22 Type 2 diabetes mellitus with diabetic chronic kidney disease; I12.9 Hypertensive chronic kidney disease with stage 1 through stage 4 chronic kidney disease, or unspecified chronic kidney disease; N18.9 Chronic kidney disease, unspecified; G43.909 Migraine, unspecified, not intractable, without status migrainosus; Z79.899 Other long term (current) drug therapy; Z79.84 Long term (current) use of oral hypoglycemic drugs
CPT/HCPCS: 36415; 70450; 71045; 80053; 80185; 82140; 82962; 84484; 85025; 85610; 85730; 96365; 96367; 96375; 99285; G0480; J1165; J1885; J1953; J7030; J7050; 80320

== ENCOUNTER 2018-09-06 08:57 | Emergency (ER) | payer SELFPAY ==
[2018-09-06] MEDS ORDERED: NACL 0.9% 500 ML 500 ML IV ONE (10:44)
[2018-09-06] MEDS ORDERED: PEPCID IV ONE (10:44)
--- NOTE | 2018-09-06 10:52 | Emergency Department Report ---
ED General Adult HPI - General Chief complaint: Hyperglycemia Stated complaint: HIGH BLOOD SUGAR Time Seen by Provider: 09/06/18 09:55 Source: patient, RN/MD, EMS (ems notes not available at time of chart dictation), RN notes reviewed, old records reviewed Mode of arrival: Stretcher Limitations: Physical Limitation - History of Present Illness Initial comments: This is a 53-year-old female. This patient is known to this provider previously. She reports that she does not have a local primary care doctor. She reports traveling back and forth between [facility]. Past medical history is reportedly includes seizure, diabetes, hypertension, Lawrence's disease, and fibromyalgia. She does not know the names of all the medications that she takes. She is brought to the hospital today by EMS with a primary complaint of hyperglycemia. She reports her fingerstick today was 417. She reports it typically runs 151. The patient is not sure she's had dietary indiscretions. She thinks she's been taking her medications, but she is not sure. She does not recall the names of her diabetic medications. She believes that she takes an insulin formulation, but she is not sure of the name. Her sensation of hyperglycemia is constant, does not radiate anywhere, and reportedly does not have exacerbating or relieving factors. Patient endorses multiple secondary complaints on review of systems. She endorses frontal headache, not sudden or thunderclap in nature, not maximal in intensity, not the most intense headache of her life. The headache started at 4:00 this morning. She further endorses multiple falls, over the past couple weeks. She reports that while traveling back and forth between [facility], she typically walks with a walker, cane, and went on a plane, gets wheelchair assistance. She denies midline neck pain. She endorses epigastric subxiphoid abdominal and chest burning discomfort. She reports it does not radiate anywhere, except to the distal abdomen, and worsens with eating, and decreases with rest. She endorses it as a sensation of "smothering." She also endorses shortness of breath. She has difficulty describing the nature of her shortness of breath. She denies urinary symptoms. She has chronic musculoskeletal pain secondary to her reported fibromyalgia. She reports left-sided distal thigh pain and knee pain from frequent falls. -: hour(s) Location: head, chest, abdomen, left, lower extremity Radiation: other Quality: other Consistency: other Improves with: other Worsens with: other Associated Symptoms: weakness, other - Related Data Home Medications Medication Instructions Recorded Confirmed Last Taken metFORMIN [Glucophage] 500 mg PO BID 09/06/15 09/06/18 Unknown Citalopram [Celexa] 40 mg PO QDAY 09/12/15 09/06/18 Unknown Gabapentin [Neurontin] 600 mg PO BID 09/12/15 09/06/18 Unknown Cyclobenzaprine [Flexeril 10 MG 10 mg PO QHS 03/05/18 09/06/18 Unknown TAB] Levetiracetam 1,000 mg PO BID 03/05/18 09/06/18 Unknown Docusate Sodium [Dok] 100 mg PO BID 03/06/18 09/06/18 Unknown Duloxetine HCl [DULoxetine] 60 mg PO BID 03/06/18 09/06/18 Unknown Etodolac 300 mg PO BID 03/06/18 09/06/18 Unknown Fenofibrate 160 mg PO DAILY 03/06/18 09/06/18 Unknown Glimepiride [Amaryl] 1 mg PO DAILY 03/06/18 09/06/18 Unknown Hydrocortisone [Cortef TAB] 20 mg PO QAM 03/06/18 09/06/18 Unknown Losartan Potassium [Cozaar] 50 mg PO DAILY 03/06/18 09/06/18 Unknown Metoprolol Succinate [Toprol Xl] 50 mg PO DAILY MDD 1 03/06/18 09/06/18 Unknown Pantoprazole Sodium 40 mg PO DAILY 03/06/18 09/06/18 Unknown Thiamine HCl [Vitamin B-1] 100 mg PO DAILY 03/06/18 09/06/18 Unknown Zolpidem Tartrate [Ambien] 10 mg PO QHS 03/06/18 09/06/18 Unknown Hydrocortisone [Cortef TAB] 10 mg PO QPM 09/06/18 09/06/18 Unknown Phenytoin [Dilantin] 200 mg PO BID 09/06/18 09/06/18 Unknown levETIRAcetam [Keppra TAB] 1,000 mg PO QAM 09/06/18 09/06/18 Unknown levETIRAcetam [Keppra TAB] 1,500 mg PO QPM 09/06/18 09/06/18 Unknown Previous Rx's Medication Instructions Recorded Last Taken Type Lactulose [Cephulac] 20 gm PO BID 14 Days oral.liqd 03/06/18 Unknown Rx Aspirin [Aspirin BABY CHEW TAB] 81 mg PO QDAY #30 tab.chew 09/06/18 Unknown Rx Famotidine [Pepcid] 20 mg PO BID #10 tablet 09/06/18 Unknown Rx Allergies Allergy/AdvReac Type Severity Reaction Status Date / Time No Known Allergies Allergy Verified 03/04/18 13:45 ED Review of Systems ROS: Stated complaint: HIGH BLOOD SUGAR Other details as noted in HPI Constitutional: malaise. denies: fever Eyes: denies: eye discharge ENT: denies: congestion Respiratory: shortness of breath Cardiovascular: chest pain Gastrointestinal: abdominal pain Genitourinary: denies: dysuria Musculoskeletal: arthralgia, myalgia Skin: denies: lesions Neurological: weakness Psychiatric: anxiety ED Past Medical Hx - Past Medical History Hx Hypertension: Yes Hx CVA: Yes Hx Congestive Heart Failure: No Hx Diabetes: Yes Hx GERD: Yes Hx Liver Disease: Yes Hx Renal Disease: Yes (CKD) Hx Headaches / Migraines: Yes Hx Seizures: Yes Hx Asthma: No Hx COPD: No Hx Dementia: No Additional medical history: Brain Tumor, adrenal insufficiency, fibromyalgia - Social History Smoking Status: Never Smoker Substance Use Type: None - Medications Home Medications: Home Medications Medication Instructions Recorded Confirmed Last Taken Type metFORMIN [Glucophage] 500 mg PO BID 09/06/15 09/06/18 Unknown History Citalopram [Celexa] 40 mg PO QDAY 09/12/15 09/06/18 Unknown History Gabapentin [Neurontin] 600 mg PO BID 09/12/15 09/06/18 Unknown History Cyclobenzaprine [Flexeril 10 MG 10 mg PO QHS 03/05/18 09/06/18 Unknown History TAB] Levetiracetam 1,000 mg PO BID 03/05/18 09/06/18 Unknown History Docusate Sodium [Dok] 100 mg PO BID 03/06/18 09/06/18 Unknown History Duloxetine HCl [DULoxetine] 60 mg PO BID 03/06/18 09/06/18 Unknown History Etodolac 300 mg PO BID 03/06/18 09/06/18 Unknown History Fenofibrate 160 mg PO DAILY 03/06/18 09/06/18 Unknown History Glimepiride [Amaryl] 1 mg PO DAILY 03/06/18 09/06/18 Unknown History Hydrocortisone [Cortef TAB] 20 mg PO QAM 03/06/18 09/06/18 Unknown History Lactulose [Cephulac] 20 gm PO BID 14 Days oral.liqd 03/06/18 09/06/18 Unknown Rx Losartan Potassium [Cozaar] 50 mg PO DAILY 03/06/18 09/06/18 Unknown History Metoprolol Succinate [Toprol Xl] 50 mg PO DAILY MDD 1 03/06/18 09/06/18 Unknown History Pantoprazole Sodium 40 mg PO DAILY 03/06/18 09/06/18 Unknown History Thiamine HCl [Vitamin B-1] 100 mg PO DAILY 03/06/18 09/06/18 Unknown History Zolpidem Tartrate [Ambien] 10 mg PO QHS 03/06/18 09/06/18 Unknown History Aspirin [Aspirin BABY CHEW TAB] 81 mg PO QDAY #30 tab.chew 09/06/18 Unknown Rx Famotidine [Pepcid] 20 mg PO BID #10 tablet 09/06/18 Unknown Rx Hydrocortisone [Cortef TAB] 10 mg PO QPM 09/06/18 09/06/18 Unknown History Phenytoin [Dilantin] 200 mg PO BID 09/06/18 09/06/18 Unknown History levETIRAcetam [Keppra TAB] 1,000 mg PO QAM 09/06/18 09/06/18 Unknown History levETIRAcetam [Keppra TAB] 1,500 mg PO QPM 09/06/18 09/06/18 Unknown History ED Physical Exam - General Limitations: No Limitations General appearance: alert, obese - Head Head exam: Present: atraumatic, normocephalic - Eye Eye exam: Present: normal appearance, EOMI. Absent: nystagmus - ENT ENT exam: Present: normal exam, normal orophraynx, mucous membranes moist, normal external ear exam - Neck Neck exam: Present: normal inspection, full ROM. Absent: tenderness, meningismus - Respiratory Respiratory exam: Present: normal lung sounds bilaterally, chest wall tenderness, other (there is no breast tenderness. There is reproducible ant erior chest wall tenderness. There is no redness, pus or streaking. There are no vesicular lesions. Chaperoned by nurse Mary Jackson). Absent: respiratory distress - Cardiovascular Cardiovascular Exam: Present: regular rate, normal rhythm, normal heart sounds. Absent: bradycardia, tachycardia, irregular rhythm, systolic murmur, diastolic murmur, rubs, gallop - GI/Abdominal GI/Abdominal exam: Present: soft. Absent: distended, tenderness, guarding, rebound, rigid, pulsatile mass - Extremities Exam Extremities exam: Present: normal inspection, full ROM, tenderness (there is distal left lateral thigh tenderness. There is no joint instability. Otherwise, no long bony tenderness. During lower extremity examination, chaperoned by nurse Mary Jackson), other (2+ pulses noted in the bilateral upper, lower extremities. Compartments soft. No long bony tenderness. The pelvis is stable.). Absent: calf tenderness - Back Exam Back exam: Present: normal inspection, full ROM. Absent: tenderness, CVA tenderness (R), CVA tenderness (L), paraspinal tenderness, vertebral tenderness - Neurological Exam Neurological exam: Present: alert, other (Extraocular movements intact. Tongue midline. No facial droop. Facial sensation intact to light touch in the V1, V2, V3 distribution bilaterally. 5 and 5 strength in 4 extremities.. Sensation is intact to light touch in 4 extremities.). Absent: motor sensory deficit - Psychiatric Psychiatric exam: Present: anxious, flat affect - Skin Skin exam: Present: warm, dry, intact, normal color. Absent: rash ED Course Vital Signs 09/06/18 09/06/18 09/06/18 09:28 09:30 09:35 Temperature 98.0 F Pulse Rate 91 H 91 H Respiratory 17 20 Rate Blood Pressure 173/102 161/99 O2 Sat by Pulse 97 94 94 Oximetry 09/06/18 09/06/18 09/06/18 10:00 10:30 12:07 Temperature Pulse Rate 89 93 H Respiratory 17 14 Rate Blood Pressure 161/99 160/108 155/99 O2 Sat by Pulse 95 95 92 Oximetry 09/06/18 09/06/18 12:30 13:13 Temperature Pulse Rate 76 83 Respiratory 15 14 Rate Blood Pressure 125/90 125/90 O2 Sat by Pulse 98 95 Oximetry - Reevaluation(s) Reevaluation #1: 09/06/18 10:54 Differential diagnosis, including but not limited to: Hyperglycemia, diabetic ketoacidosis, hyperosmolar state, medication noncompliance, acute coronary syndrome, GERD, gastritis, costochondritis, pancreatitis, pulmonary embolus, sprain, strain, contusion, debility, fibromyalgia Assessment and plan: 53-year-old female with a primary complaint of hyperglycemia, multiple secondary complaints. We will obtain Accu-Cheks, and a ppropriate screening laboratory studies. Given for hyperglycemia will depend on her initial laboratory studies. Headache likely posttraumatic, has GCS of 15, NIH score of 0, with no midline cervical spine tenderness. We will treat her headache, and obtain CT scan of the brain. Chest pain is reviewed and appreciated, her cardiovascular risk factor burden is reviewed and appreciated, she's had negative stress tests at this hospital in the past, and currently, this institution has developed a protocol whereby patients may obtain expedited outpatient cardiology follow-up to completely cardiac risk stratification. Therefore, we will treat her chest wall pain, obtained troponin 2, x-ray of the chest, EKG 2, and send d-dimer to risk stratify patient for pulmonary embolism, given her reported history of multiple trips back and forth between [facility]. Abdomen is soft and benign, nontender, doubt surgical process. We will treat her abdominal pain with appropriate medication, obtain screening laboratory studies, urinalysis, and CT scan of the abdomen and pelvis. Has chronic muscular skeletal pain, doubt fracture, doubt dislocation, is no evidence of fracture, dislocation, or compartment syndrome. We will obtain appropriate plain films, and treat her pain. I have advised the patient to not fly back and forth between [facility], she'll need to be complacent in order to establish care. Nevertheless, he spent a consult will be requested to assist with patient's outpatient management. Of note, nursing team informs me that the patient denied all complaints to them, with the exception of hyperglycemia. Reevaluation #2: 09/06/18 14:34 Troponin is negative 2. EKG is unchanged 2. D-dimer is negative. CT scan of the brain, abdomen/pelvis negative for acute disease. Patient has been observed in this department for hours without clinical decompensation. The patient was seen by case management, he'll have given the patient appropriate social recommendations. The patient at this point in time does not appear to have an immediate or emergent medical condition, and may follow up as an outpatient. ED Medical Decision Making - Lab Data Result diagrams: 09/06/18 10:55 09/06/18 10:55 Vital Signs 09/06/18 09:35 Temperature 98.0 F Pulse Rate 91 H Respiratory 20 Rate Blood Pressure 161/99 O2 Sat by Pulse 94 Oximetry Lab Results 09/06/18 Range/Units 09:22 POC Glucose 244 H (70-105) - EKG Data -: EKG Interpreted by Me EKG shows normal: sinus rhythm Rate: normal - EKG Data When compared to previous EKG there are: no significant change 09/06/18 10:57 This is a normal sinus rhythm, 90 bpm, normal axis, QTC 460 ms, borderline left ventricular hypertrophy, and the EKG is unremarkable, the EKG is not consistent with ST elevation myocardial infarction, the EKG appears to be unchanged from prior EKG from 03/04/2018. - Radiology Data Radiology results: pending, report reviewed, image reviewed CT scan of the brain, abdomen and pelvis negative for acute disease. Incidental findings noted. X-ray of the chest, pelvis, left knee negative for acute disease. Critical care attestation.: If time is entered above; I have spent that time in minutes in the direct care of this critically ill patient, excluding procedure time. ED Disposition Clinical Impression: Chest pain, History of fall, Abdominal pain Disposition: -01 TO HOME OR SELFCARE Is pt being admited?: No Does the pt Need Aspirin: No Condition: Stable Instructions: Chest Pain (ED) Additional Instructions: Continue current outpatient medications. Avoid sedating medications, including opiates, and benzodiazepines. Avoid consumption of alcohol. Avoid consumption of Motrin, ibuprofen, Naprosyn, Aleve. Please make certain to use a cane or walker when walking/ambulatory. Rest, avoid heavy lifting, and avoid strenuous physical activity. Recommend the patient try to minimize flight and travel. Recommend that patient establish residence, permanently, either here in [place], or here in [place]. Recommend the patient follow up with a practical nurse within the next 3 days. Recommend the patient follow up with the primary care doctor within the next 2 weeks. as per this hospital's protocol, patient's information has been since to local cardiology group, who should be contacting the patient with an outpatient follow-up with the phone number that she provided, within the next 2-3 days. However, the patient should also contact the listed cardiology group to arrange outpatient follow-up. Return to the emergency room right away with new, worsening or different symptoms, or symptoms not present on the initial emergency room evaluation. Have your primary care doctor contact the medical records department to obtain copies of CT scan reports and laboratory studies. CT scan of the brain, abdomen/pelvis demonstrated no emergent condition, but a number of nonemergent incidental findings were noted, and this should be followed up by her primary care doctor within the next 8 weeks. Not having this performed as recommended resultant undiagnosed tumor, cancer, malignancy. Prescriptions: Aspirin [Aspirin BABY CHEW TAB] 81 mg PO QDAY #30 tab.chew Famotidine [Pepcid] 20 mg PO BID #10 tablet Referrals: ENEDELIA CHOPRA MD [Primary Care Provider] - 3-5 Days GAMALIEL PELLETIER MD [Staff Physician] - 3-5 Days [facility] [Provider Group] - 3-5 Days
[2018-09-06] MEDS ORDERED: TYLENOL PO STA (10:56)
[2018-09-06 11:11] LABS: Basophils # (Auto) 0.1 K/mm3 (0.0-0.1); Basophils % (Auto) 0.9 % (0.0-1.8); Eosinophils # (Auto) 0.1 K/mm3 (0.0-0.4); Eosinophils % (Auto) 1.1 % (0.0-4.3); Hematocrit 35.7 % (30.3-42.9); Hemoglobin 12.4 gm/dl (10.1-14.3); Lymphocytes # (Auto) 3.3 K/mm3 (1.2-5.4); Lymphocytes % (Auto) 35.7 % (13.4-35.0); Mean Corpuscular HGB Conc 35 % (30-34); Mean Corpuscular Volume 75 fl (79-97); Monocytes # (Auto) 0.7 K/mm3 (0.0-0.8); Monocytes % (Auto) 7.3 % (0.0-7.3); Platelet Count 217 K/mm3 (140-440); Red Blood Count 4.76 M/mm3 (3.65-5.03)
[2018-09-06 11:30] LABS: INR 1.14 (0.87-1.13)
[2018-09-06 11:37] LABS: Alanine Aminotransferase 31 units/L (7-56); Albumin 4.2 g/dL (3.9-5); BUN/Creatinine Ratio 22; Blood Urea Nitrogen 13 mg/dL (7-17); Calcium 9.4 mg/dL (8.4-10.2); Hemolysis Index 2
[2018-09-06 11:48] LABS: Bacteria,Urine 1+ /HPF (Negative); Bilirubin,Urine NEG (Negative); Blood,Urine NEG (Negative); Color,Urine Yellow (Yellow); Mucus,Urine FEW /HPF; Protein,Urine <15 mg/dL mg/dL (Negative)
[2018-09-06 11:58] LABS: Bilirubin,Direct < 0.2 mg/dL (0-0.2)
--- NOTE | 2018-09-06 12:30 | Cat Scan Report ---
CT HEAD WITHOUT CONTRAST INDICATION: headache, falls , history of brain tumor TECHNIQUE: All CT scans at this location are performed using CT dose reduction for ALARA by means of automated exposure control. COMPARISON: 07/10/2018 FINDINGS: BRAIN: No hemorrhage or mass effect are seen. No evidence of acute infarction is noted. The 2.3 cm pr esumed meningioma arising from the right sphenoid wing area is stable. ORBITS: Normal as visualized. SOFT TISSUES OF HEAD: Normal. CALVARIUM: Normal. VISUALIZED PARANASAL SINUSES AND MASTOID AIR CELLS: Clear. ADDITIONAL FINDINGS: None. IMPRESSION: No acute intracranial abnormality. Stable appearance of meningioma. Signer Name: Justus Garrison MD Signed: 09/06/2018 12:26 PM Workstation Name: [id number]
--- NOTE | 2018-09-06 12:44 | Cat Scan Report ---
CT abdomen pelvis wo con INDICATION / CLINICAL INFORMATION: Abdominal pain and fluctuating blood sugar; history of hypertension, diabetes and brain tumor. Chest pressure and headache with multiple falls. TECHNIQUE: All CT scans at this location are performed using CT dose reduction for ALARA by means of automated e xposure control. COMPARISON: None available. FINDINGS: ABDOMEN: There is moderate generalized decreased density of the liver parenchyma compared to the sple en with focal sparing adjacent to the gallbladder. There are a couple of tiny renal lesions bilateral ly. The largest lesion measures 7.7 mm in the right upper pole laterally. There is a similar tiny les ion in the midpole left kidney posteriorly. The lesions do not measure water density, but are difficult to characterize due to their small size. There is a very small sliding hiatal hernia. The gallbladder, bile ducts, pancreas, spleen, and adren al glands demonstrate no significant abnormality. There is elongated nodularity along the course of t he right ovarian vein, best seen on axial images 64 through 75. No para-aortic lymphadenopathy is see n. The lung bases are clear. PELVIS: The distal ureters and urinary bladder are normal. The uterus and ovaries are not identified. There is no evidence of appendicitis or diverticulitis. No abnormal mass or fluid collection is seen . I do not identify a hernia. No osseous abnormality is seen. IMPRESSION: 1. No acute intra-abdominal disease is identified. 2. Moderate fatty infiltration of the liver. 3. A couple of tiny renal lesions bilaterally are too small to characterize but may represent hyperde nse cysts or solid lesions. The largest lesion measures less than 1 cm. A follow-up CT of the abdomen without and with intravenous contrast in one year may be helpful in further evaluation and documenti ng stability. 4. Nodularity along the course of the right ovarian vein could be related to localized varices or lym phadenopathy. This is of uncertain clinical significance. Signer Name: Armando Moya MD Signed: 09/06/2018 12:40 PM Workstation Name: [email or web address]
--- NOTE | 2018-09-06 13:54 | XRay Report ---
CHEST 2 VIEWS INDICATION / CLINICAL INFORMATION: Chest Pain. COMPARISON: Chest x-ray on 07/10/2018 FINDINGS: SUPPORT DEVICES: None. HEART / MEDIASTINUM: No significant abnormality. LUNGS / PLEURA: No significant pulmonary or pleural abnormality. No pneumothorax. ADDITIONAL FINDINGS: No significant additional findings. IMPRESSION: 1. No acute findings. Signer Name: Arturo Chairez MD Signed: 09/06/2018 1:50 PM Workstation Name: [id number]
--- NOTE | 2018-09-06 13:55 | XRay Report ---
XR pelvis 1-2V INDICATION / CLINICAL INFORMATION: Leg pain, falls. COMPARISON: None available. FINDINGS: BONES/JOINT(S): No acute fracture or subluxation. No significant degenerative changes. SOFT TISSUES: No significant abnormality. ADDITIONAL FINDINGS: None. Signer Name: Arturo Chairez MD Signed: 09/06/2018 1:51 PM Workstation Name: [id number]
--- NOTE | 2018-09-06 13:56 | XRay Report ---
XR knee 3V LT INDICATION / CLINICAL INFORMATION: Leg pain, recent falls. COMPARISON: None available. FINDINGS: BONES/JOINT(S): No acute fracture or subluxation. Mild DJD in the medial femorotibial compartment wit h mild joint space loss. No significant joint effusion. SOFT TISSUES: No significant abnormality. ADDITIONAL FINDINGS: None. Signer Name: Arturo Chairez MD Signed: 09/06/2018 1:51 PM Workstation Name: [id number]
[2018-09-06] MEDS ORDERED: ZOFRAN ODT ONE (16:06)
[2018-09-06 16:20] VITALS: BP 167/95
== END 2018-09-06 16:20 | disposition home or self-care (01) ==
LOC: ED 08:57
DX: E11.65 Type 2 diabetes mellitus with hyperglycemia (principal); R10.13 Epigastric pain; R07.89 Other chest pain; M79.652 Pain in left thigh; M25.562 Pain in left knee; M79.7 Fibromyalgia; K21.9 Gastro-esophageal reflux disease without esophagitis; I12.9 Hypertensive chronic kidney disease with stage 1 through stage 4 chronic kidney disease, or unspecified chronic kidney disease; E11.22 Type 2 diabetes mellitus with diabetic chronic kidney disease; N18.9 Chronic kidney disease, unspecified; G43.909 Migraine, unspecified, not intractable, without status migrainosus; Z86.73 Personal history of transient ischemic attack (TIA), and cerebral infarction without residual deficits; Z79.84 Long term (current) use of oral hypoglycemic drugs; Z79.82 Long term (current) use of aspirin; Z79.899 Other long term (current) drug therapy; Z85.841 Personal history of malignant neoplasm of brain; Z86.39 Personal history of other endocrine, nutritional and metabolic disease; Z91.81 History of falling
CPT/HCPCS: 36415; 70450; 71046; 72170; 73562; 74176; 80048; 80076; 81001; 82550; 82805; 82962; 83690; 83735; 84484; 85025; 85379; 85610; 93005; 93010; 96374; 99285; J7040; Q0162